=== PATIENT | male | born 1955 | race Caucasian/White ===

== ENCOUNTER 2023-08-03 07:34 | Inpatient (IN) ==
--- NOTE | 2023-06-25 11:45 | PAT Medication Instructions ---
Medication Instructions Date of Service June 25, 2023 Home Medications metformin 500 mg tablet 1,000 mg PO QPM MEDICATION INSTRUCTIONS: Take evening before surgery metformin 500 mg tablet 1,000 mg PO QPM Other Notes REMEMBER: NOTHING TO EAT OR DRINK AFTER MIDNIGHT If you have any questions please call us at [phone] or [phone] or [phone] or [phone]
--- NOTE | 2023-07-08 11:01 | Anesthesiology Consultation ---
Date of Service July 08, 2023 Assessment & Plan (1) Encounter for pre-operative examination: Plan - check BSG am DOS. - awaiting surgeon ordered medical clearance, Dr.Minhaj Carballo at [facility] in [place], [place] on 07/13/23. Chart Review Chart Review: Pending: Refer to Additional Notes / Consult section and Patient seen in Pre Admission Testing Teaching & Discussion Pre-Anesthesia Teaching/Discussion Notes: Instructed NPO after midnight before surgery, except medications with 15 cc of water. Medication instructions provided according to the PAT guidelines. History Surgery Operation Date: 08/03/23 07:45 Proposed Procedures p L3-S1 Decompression and Fusion with Spinal Cord Monitoring - Ty Melchor, Height/Weight Height: 5 ft 11 in Weight: 117.3 kg Allergies Allergy/AdvReac Type Severity Reaction Status Date / Time adhesive AdvReac Intermediate SKIN TEARS Verified 06/24/23 15:16 Medications Home Medications Medication Instructions Recorded Confirmed Last Taken metformin 500 mg tablet 1,000 mg PO QPM 06/24/23 06/24/23 Unknown Past Medical History Medical History Diabetes NIDDM History of anesthesia reaction reports waking up in middle of 2 surgeries History of COVID-19 (~2022) lab test, resolved Patient denies h/o stroke, seizures, heart attack, heart failure, HTN, blood clots/DVTs or blood transfusions. Exercise / Class Metabolic Activity III < 4 Walking/Shop/Light housework (denies chest discomfort or shortness of breath with usual activities) Past Surgical History Surgical History (Updated 07/08/23 @ 11:10 by Babs Person PA-C) History of back surgery lumbar disectomy History of bilateral knee replacement History of colonoscopy History of esophagogastroduodenoscopy (EGD) Hx of hand surgery x 2, bilat Hx of knee surgery x 3 arthroscopic Hx of neck surgery x 3 Hx of shoulder surgery rt Hx of tonsillectomy Hx of vasectomy Past Anesthesia History No Family Hx of Anesthesia Complications and Other (awareness during previous surgeries) History of PONV No Hx of PONV and No Hx of Motion Sickness Social History Smoking Status: Never smoker Do You Dip or Chew Tobacco: Yes (1/2 can/day (advised)) Hx Alcohol Use: Yes Alcohol type: beer alcohol intake frequency: 3 or more drinks per day (4-5 drinks daily; denies h/o seizures, withdrawal or DTs) Hx Substance Use: No substance use type: does not use Review of Systems Patient denies chest pain, shortness of breath, dyspnea on exertion, snoring, witnessed apneas, reflux, fever, chills, cough, wheezing, or palpitations. Physical Exam Vital Signs Vitals BP 127/79 P 56 TEMP 97.6 SP02 95% on RA RESP 18 Physical Patient resting comfortably in chair in no acute distress, alert and oriented, responding appropriately throughout visit Moderately limited cervical extension range of motion without pain TMD 3.5 finger breadths Mallampati Score 2 Dentition: one broken tooth and partial plate, denies loose teeth, caps/crowns, implants or bridges Lungs: normal respiratory effort. Good air movement, clear throughout to auscultation, no adventitious breath sounds Cardiac: regular rate and rhythm, no murmurs noted Carotid arteries: negative bruit bilat Lab Results Anesthesia Preop Results Results Anesthesia Widget: WBC 5.56 K/ul (4.8-10.8) 07/08/23 Hgb 16.9 g/dl (14.0-18.0) 07/08/23 Hct 47.3 % (42.0-52.0) 07/08/23 Plt 250 K/uL (130-400) 07/08/23 Na 137 mmol/L (136-145) 07/08/23 K 4.1 mmol/L (3.5-5.1) 07/08/23 Cl 104 mmol/L (98-107) 07/08/23 CO2 27 mmol/L (21-32) 07/08/23 BUN 16 mg/dl (6-23) 07/08/23 Creat 0.87 mg/dl (0.6-1.4) 07/08/23 Glucose Level 134 mg/dl (70-99(Fasting)) H 07/08/23 PT 11.1 Seconds (9.0-12.0) 07/08/23 PTT 30 Seconds (21-31) 07/08/23 INR 1.0 (0.9-1.1) 07/08/23 HA1c 6.9 % (4.5-5.6) H 07/08/23 Urine Color Yellow 07/08/23 Urine Appearance Clear (Clear) 07/08/23 Urine pH 5.0 (4.5-7.5) 07/08/23 Urine Specific [place] 1.020 (1.000-1.030) 07/08/23 Urine Protein Negative (Negative) 07/08/23 Urine Glucose (UA) Negative (Negative) 07/08/23 Urine Ketones Negative (Negative) 07/08/23 Urine Blood Negative (Negative) 07/08/23 Urine Nitrite Negative (Negative) 07/08/23 Urine Bilirubin Negative (Negative) 07/08/23 Urine Urobilinogen Negative (Negative) 07/08/23 Urine Leukocyte Esterase Negative (Negative) 07/08/23 Blood Type O Positive 07/08/23 Antibody Screen NEGATIVE 07/08/23 Testing Electrocardiogram Date: 07/08/23 Sinus bradycardia, rate 51 bpm Chest X-Ray Date: 07/08/23 Mild cardiomegaly with no active disease in the chest.
[2023-08-03] MEDS: LR 60ML/HR IV SCH (08:24)
[2023-08-03] MEDS: CeleBREX 200 MG CAP PO SCH (08:24)
[2023-08-03] MEDS: GABAPENTIN 300 MG CAP PO SCH (08:24)
[2023-08-03] MEDS: LR 15ML/HR IV SCH (08:24)
[2023-08-03] MEDS: ACETAMINOPHEN 500 MG TAB PO SCH (08:24)
[2023-08-03] MEDS ORDERED: PROMETHAZINE HCL 6.25 MG in SODIUM CHLORIDE 0.9% 50 ML IV PRN (09:06)
[2023-08-03] MEDS ORDERED: ePHEDrine sulfate 50 MG/ML AMP IV PRN (09:06)
[2023-08-03] MEDS ORDERED: HYDROmorphone INJ 2 MG/ML SYR/VIAL IV PRN (09:06)
[2023-08-03] MEDS ORDERED: ONDANSETRON INJ 2 MG/ML 2 ML VIAL IV PRN ×2 (09:06→15:10)
[2023-08-03] MEDS ORDERED: ATROPINE SULFATE 0.1 MG/ML 10ML SYR IV PRN (09:06)
[2023-08-03] MEDS ORDERED: ROCURONIUM BROMIDE 10 MG/ML 5 ML VIAL IV ONE ×2 (09:23→11:14)
[2023-08-03] MEDS ORDERED: LARYING-O-JET KIT (LTA) ONE (09:23)
[2023-08-03] MEDS ORDERED: PROPOFOL IV EMULSION 10 MG/ML 20 ML VIAL IV ONE (09:23)
[2023-08-03] MEDS ORDERED: ONDANSETRON INJ 2 MG/ML 2 ML VIAL ONE (09:23)
[2023-08-03] MEDS ORDERED: DEXAMETHASONE SOD INJ 4 MG/ML VIAL ONE (09:23)
[2023-08-03] MEDS ORDERED: MIDAZOLAM HCL 1 MG/ML 2ML VIAL ONE (09:23)
[2023-08-03] MEDS ORDERED: LIDOCAINE 2% 2 ML VIAL/AMP(20MG/ML) INFIL ONE (09:23)
[2023-08-03] MEDS ORDERED: fentaNYL citrate PF 100 MCG/2 ML VIAL ONE (09:24)
--- NOTE | 2023-08-03 09:59 | History & Physical Bridge Note ---
Date of Service August 03, 2023 History & Physical Bridge Note I have examined the patient, reviewed the History & Physical and in the interval since the performance of the History & Physical I have noted the following changes of clinical significance: no changes noted
--- NOTE | 2023-08-03 10:00 | History & Physical Report ---
Date of Service August 03, 2023 Assessment & Plan (1) Neurogenic claudication due to lumbar spinal stenosis: Plan: L3-S1 decompression and fusion History of Present Illness Chief Complaint: Back and bilateral leg pain Primary Care Provider: NO PCP This is a 68-year-old male presents with chronic persistent back and bilateral leg pain after the course of nonoperative care is here for surgical invention. Allergies Allergy/AdvReac Type Severity Reaction Status Date / Time adhesive AdvReac Intermediate SKIN TEARS Verified 08/03/23 08:08 Home Medications Medication Instructions Recorded Confirmed Type metformin 500 mg tablet 1,000 mg PO QPM 06/24/23 08/03/23 History Past Med/Surg History Medical History (Updated 08/03/23 @ 10:00 by Ty Melchor DO) History of anesthesia reaction reports waking up in middle of 2 surgeries History of COVID-19 (~2022) lab test, resolved Diabetes NIDDM Surgical History History of esophagogastroduodenoscopy (EGD) History of colonoscopy Hx of hand surgery x 2, bilat Hx of tonsillectomy Hx of vasectomy History of bilateral knee replacement Hx of knee surgery x 3 arthroscopic History of back surgery lumbar disectomy Hx of shoulder surgery rt Hx of neck surgery x 3 Social History Smoking Status: Never smoker Tobacco Type: Smokeless Tobacco (Dip or Chew) Second Hand Exposure: No; Do You Dip or Chew Tobacco: Yes (1/2 can/day (advised)); Tobacco Cessation Education Requested by Patient: No Hx Alcohol Use: Yes Alcohol type: beer Hx Substance Use: No Preferred Language: Northern Irish Communication Ability: Effective Child Care Supervisor Required: No Beliefs That Will Affect Care: None Current Living Situation: Spouse Other Information That Helps Us Care for You: No Feels Safe at Home: Yes Safety Concerns: Feels Safe At This Time Assistive Devices: Denture - Lower and Glasses Physical Exam Physical Exam: Patient is alert and oriented Heart regular rhythm Lungs clear Results & Data Results & Data Vital Signs (Past 12 Hours) Vital Signs Temp Pulse Resp BP Pulse Ox O2 Del Method 08/03/23 08:14 36.4 C L 58 L 18 155/90 H 96 Room Air
[2023-08-03] MEDS ORDERED: KETAMINE HCL INJ 50 MG/ML 10 ML VIAL ONE (10:15)
[2023-08-03] MEDS ORDERED: DexMEDEtomidine HCL IV 100 MCG/ML VIAL IV ONE (10:15)
[2023-08-03] MEDS: ceFAZolin 2000MG 2,000 MG/15 ML SYR IV SCH ×2 (10:26→19:45)
[2023-08-03] MEDS ORDERED: ePHEDrine sulfate 50 MG/ML AMP ONE (11:00)
[2023-08-03] MEDS ORDERED: PHENYLEPHRINE 100MCG/ML 10ML SYR IV ONE (11:00)
[2023-08-03] MEDS ORDERED: HYDROmorphone INJ 2 MG/ML SYR/VIAL ONE (11:06)
[2023-08-03] MEDS: ceFAZolin 330 MG/ML 1 GM VIAL ONE (11:07)
[2023-08-03] MEDS: BUPIVACAINE/EPINEPHRINE 0.5% MPF 1:200,000 30 ML VIAL ONE (11:07)
[2023-08-03] MEDS: FLOSEAL HEMOSTATIC MATRIX 10ML TOP ONE ×2 (12:31→13:24)
[2023-08-03] MEDS ORDERED: ALBUMIN HUMAN 5% 12.5 GM/250 ML VIAL IV ONE (12:54)
[2023-08-03] MEDS ORDERED: SUGAMMADEX SODIUM 200 MG/2 ML VIAL IV ONE (13:35)
--- NOTE | 2023-08-03 13:37 | Operative Report ---
Post Operative Report Pre & Post Diagnosis Operation Date: 08/03/23 09:35 Pre-Op Diagnosis: Lumbar spinal stenosis with neurogenic claudication Lumbar spondylosis Obesity Post-Op Diagnosis: Same I identified the patient and participated in the time-out.: Yes Procedure Operation Date: 08/03/23 09:35 Actual Procedures #1 lumbar decompression bilateral medial facetectomies and foraminotomies L2-L3, L3-L4, L4-5 and L5-S1. #2 posterior spinal fusion L3-S1. #3 placed posterior segmental instrumentation L3-S1. #4 interbody fusion L3-L4 L4-L5 #5 placement Spira 13 x 26 mm at L3-L4 and 14 x 26 mm at L4-L5. #6 placement of locally harvested morselized autograft posterior gutters. #7 placement infuse collagen sponge combined with Koros bone graft in the posterior gutters and Morpheus bone graft in the interbody space. Surgeon Ty Melchor, DO Reinforcing Rod Layer Jaky Slater Estimated Blood Loss 1,250 Findings See Below The patient is 5 foot 11 weighing over 117 kg with a BMI in excess of 36. This combined with an EBL of greater than 1200 cc created significant technical difficulty. This at least 50% increased operative time. Specimens None Indications This is a 68-year-old male presents above-mentioned diagnosis after failed course of nonoperative care is here for surgical intervention. Description of Procedure Patient was met with identified informed consent obtained. Patient was then taken to the operative suite underwent patient placed in a prone position on the [place]ountain table top [place] frame. All bony promises well-padded eyes inspected to ensure no external pressure placed upon the. This point the lumbar spine was prepped and draped in normal sterile fashion. Sharp dissection with the assistance of Bovie cautery from down to and exposing the lamina transverse processes of L3 L4-5 and sacral ala bilaterally. From caudal to cephalad fashion complete laminectomy of L5 L4 L3 and partial laminectomy of L2 was performed including bilateral medial facetectomies and foraminotomies L2-L3, L3- L4, L4-5 and L5-S1 addressing severe spinal stenosis. Pedicle screws then placed in L3-L4-L5 and S1 levels bilaterally with assistance of fluoroscopy in the process mitchel placed. By way of transforaminal approach on the right complete discectomy of L4-L5 was performed endplates guided to subcortical mean bone and a 14 x 26 mm Spira cage filled with Morpheus bone graft tapped in position. Then proceeded to L3-L4 and again by way of a transforaminal approach on the right a complete discectomy performed endplates guided to subcortical bleeding bone and a 13 x 26 mm Spira cage filled with Morpheus bone graft tapped in position. I did not pursue a interbody construct at L5-S1 secondary to to blood loss and calcification of the posterior annulus at this level. The rods then locked in final position bilaterally. The transverse processes of L3-L4-L5 and sacral ala burred to subcortically bone. Infuse collagen sponge combined with Koros and local autograft placed in posterior gutters. 15 round MIRELA drain inserted. The incision was then closed with 1 Vicryl in the fascia 2-0 Vicryl subcutaneously and 4 Monocryl for final skin closure. Steri-Strips sterile dressing placed. Patient awakened taken to PACU in stable condition. Please note spinal cord monitoring was utilized at the procedure no changes noted. Lastly Jaky Slater was present at the entire surgery and all the patient positioning complex portions of the surgery and final skin closure. I attest to the content of the Intraoperative Record and any orders documented therein. Any exceptions are noted below.
[2023-08-03] MEDS: fentaNYL citrate PF 100 MCG/2 ML VIAL IV PRN (14:10)
[2023-08-03 14:21] LABS: Basophils # (auto) 0.03 K/uL (0.00-0.20); Basophils % (auto) 0.4 %; Eosinophils # (auto) 0.02 K/uL (0.00-0.50); Eosinophils % (auto) 0.3 %; Hematocrit (blood only) 40.4 % (42.0-52.0); Hemoglobin 13.8 g/dl (14.0-18.0); Immature Granulocytes # (auto) 0.06 K/uL (0.01-0.20); Immature Granulocytes % (auto) 0.8 %; Lymphocytes # (auto) 0.83 K/uL (1.20-3.40); Lymphocytes % (auto) 11.8 %; Mean Corpuscular Hemoglobin 31.9 pg (25.0-34.0); Mean Corpuscular Hgb Conc 34.2 g/dL (32.0-36.0); Mean Corpuscular Volume 93.3 fL (80.0-100.0); Mean Platelet Volume 8.9 fL (9.4-12.4); Monocytes # (auto) 0.12 K/uL (0.11-0.59); Monocytes % (auto) 1.7 %; Platelet Count 184 K/uL (130-400); RDW Coefficient of Variation 12.1 % (11.5-14.5); RDW Standard Deviation 41.9 fL (36.4-46.3); Red Blood Count 4.33 M/uL (4.70-6.10); White Blood Count 7.06 K/ul (4.8-10.8)
--- NOTE | 2023-08-03 14:42 | Anesthesiology Progress Note ---
Date of Service August 03, 2023 Anesthesia Post Procedure Vital Signs Vital Signs: Temp Pulse Pulse Resp BP Pulse Ox O2 Del Method 08/03/23 14:35 68 10 L 130/65 94 Nasal Cannula 08/03/23 14:25 64 12 116/56 L 93 Nasal Cannula 08/03/23 14:15 65 11 L 125/59 L 92 Nasal Cannula 08/03/23 14:05 64 12 130/62 97 Room Air 08/03/23 13:56 36.1 C L 63 19 131/57 L 98 Room Air 08/03/23 08:14 36.4 C L 58 L 18 155/90 H 96 Room Air O2 Flow Rate 08/03/23 14:35 08/03/23 14:25 08/03/23 14:15 2 08/03/23 14:05 08/03/23 13:56 08/03/23 08:14 Pain Intensity Back: Pain Intensity: 3 Transfer of Care Handoff Completed per policy Notes Mental Status: alert / awake / arousable and participated in evaluation Patient Amnestic to Procedure: Yes Nausea / Vomiting: adequately controlled Pain: adequately controlled Airway Patency, RR, SpO2: stable & adequate BP & HR: stable & adequate Hydration State: stable & adequate Anesthetic Complications: no major complications apparent and Pt Satisfied with anesthetic care
[2023-08-03] MEDS ORDERED: NALOXONE HCL 0.4 MG/1 ML VIAL/CARP IV PRN (15:10)
[2023-08-03] MEDS ORDERED: SOD PHOSPHATE/SOD BIPHOSPHATE ENEMA 132 ML BTL PR PRN (15:10)
[2023-08-03] MEDS ORDERED: LORazepam 0.5 MG in SYRINGE 0.25 ML IV PRN (15:10)
[2023-08-03] MEDS ORDERED: DO NOT ADMINISTER FLU VACCINE PRN (15:10)
[2023-08-03] MEDS ORDERED: ALUMINUM/MAGNESIUM SUSP 30 ML UDC PO PRN (15:10)
[2023-08-03] MEDS ORDERED: MAGNESIUM HYDROXIDE SUSP 30 ML UDC PO PRN (15:10)
[2023-08-03] MEDS ORDERED: HYDROmorphone INJ 0.5 MG/0.5 ML SYR IV PRN (15:10)
[2023-08-03] MEDS ORDERED: ONDANSETRON 4 MG OD TAB PO PRN (15:10)
[2023-08-03] MEDS ORDERED: ACETAMINOPHEN 1,000 MG/100 ML VIAL IV PRN (15:10)
[2023-08-03] MEDS ORDERED: hydrOXYzine HCl 25 MG TAB PO PRN (15:10)
[2023-08-03] MEDS ORDERED: diphenhydrAMINE Capsule 25 MG CAP PO PRN (15:10)
[2023-08-03] MEDS ORDERED: PROMETHAZINE HCL 12.5 MG in SODIUM CHLORIDE 0.9% 50 ML IV PRN (15:10)
[2023-08-03] MEDS ORDERED: bisacodyL 10 MG SUPP PR PRN (15:10)
[2023-08-03] MEDS ORDERED: PHARMACY GLYCEMIC MGMT CONSULT PRN (15:10)
[2023-08-03] MEDS ORDERED: FAMOTIDINE 20 MG TAB PO PRN (15:10)
[2023-08-03] MEDS ORDERED: DO NOT ADMINISTER PNEUMOCOCCAL VACCINE PRN (15:10)
[2023-08-03] MEDS ORDERED: traMADol HCL 50 MG TABLET PO PRN (15:10)
[2023-08-03] MEDS ORDERED: ACETAMINOPHEN 500 MG TAB PO PRN (15:10)
[2023-08-03] MEDS ORDERED: LORazepam 0.5 MG TAB PO PRN (15:10)
[2023-08-03] MEDS ORDERED: METOCLOPRAMIDE HCL INJ 5 MG/ML 2 ML VIAL IV PRN (15:10)
--- NOTE | 2023-08-03 15:29 | Consultation ---
Date of Consultation August 03, 2023 Assessment & Plan (1) Status post lumbar surgery: (2) Neurogenic claudication due to lumbar spinal stenosis: Post op day# 0 S/P L3-S1 decompression and fusion by Dr Melchor [id number] Pain management per ortho Wound management per ortho PT/OT as appropriate DVT prophylaxis per ortho Incentive spirometry Monitor H&H for acute blood loss anemia; Reviewed Pre-op Hgb: 16.9 and today's post-op Hgb: 13.8 (3) Diabetes mellitus, type II: A1c: 6.9 on 07/08/23 Hold home metformin Diabetic diet encouraged Novolog sliding scale per protocol (4) Tobacco use: Chews 1 can snuff daily Denies nicotine patch/gum (5) Alcohol use: Drinks 3-4 beers daily Monitor for withdrawal Start daily folic acid, thiamine and multivitamin (6) Obesity: BMI: 36 Lifestyle modifications to be recommended DVT Prophylaxis SCDs Follows with Dr Haris Moise at [facility] for routine care Pt was seen and care coordinated with Dr Hightower. See addendum Thank you for this consultation. We will follow the patient with you during their hospital stay. You can reach a member of the [facility] 10/11 via [facility] Supervising Physician Co-Signing Physician Notes Pt seen and examined by me, care coordinated w/ Denis Abel PA-C, pls refer to her note above for further detail. Pt is 68 yo M with DM II, DDD, chewing tobacco use, obesity, seen in medical consultation s/p L3-S1 decompression and fusion today by Dr Melchor. History obtained from patient and outpatient scanned PCP note review. Post op patient reports pain controlled. Denies fever/chills, diaphoresis, N/V/D, GARNER, dizziness, chest pain, shortness of breath. He is sitting up in bed in NAD, on suppl. o2 he is alert oriented and answers appropriately. Pt's present at the bedside. Lungs are clear but diminished at bases. Encouraged incentive spirometry. heart sounds regular, no murmur. Abdomen soft nontender, + bowel sounds. Has Osborne catheter in place, draining yellow urine. SCDs applied, pt moves extremities. MIRELA w/ serosang. fluid. Monitor hemodynamic status and H&H. Acute blood loss anemia noted H&H post-op 13.8. Hold metformin while inpt, will cover with novolog jose david. MD Katja History of Present Illness Requesting Physician: Dr Melchor Reason for Consultation: Post op medical management Attending Physician: Ty Melchor, History of Present Illness Patient is 68 year old male with PMH DM II, DDD, chewing tobacco use, obesity, seen in medical consultation s/p L3-S1 decompression and fusion today by Dr Melchor. History obtained from patient and outpatient scanned PCP note review. Post op patient reports pain controlled. Has Osborne catheter in place. Denies fever/chills, diaphoresis, N/V/D, GARNER, dizziness, CP, SOB, cough, sore throat, rhinorrhea, abdominal pain, extremity weakness, extremity edema, rashes, urinary symptoms. Allergies Allergy/AdvReac Type Severity Reaction Status Date / Time adhesive AdvReac Intermediate SKIN TEARS Verified 08/03/23 08:08 Home Medications Medication Instructions Recorded Confirmed Type metformin 500 mg tablet 1,000 mg PO QPM 06/24/23 08/03/23 History Patient History Medical History (Updated 08/03/23 @ 16:00 by Amita Abel PA-C) Obesity Tobacco use Diabetes mellitus, type II History of anesthesia reaction reports waking up in middle of 2 surgeries History of COVID-19 (~2022) lab test, resolved Diabetes NIDDM Surgical History Status post lumbar surgery 08/03/23: L3-S1 decompression, fusion. Dr Melchor. [facility] History of esophagogastroduodenoscopy (EGD) History of colonoscopy Hx of hand surgery x 2, bilat Hx of tonsillectomy Hx of vasectomy History of bilateral knee replacement Hx of knee surgery x 3 arthroscopic History of back surgery lumbar disectomy Hx of shoulder surgery rt Hx of neck surgery x 3 Family History Other Cancer Diabetes Dyslipidemia Hypertension Stroke Social History Smoking Status: Never smoker Tobacco Type: Smokeless Tobacco (Dip or Chew) Second Hand Exposure: No; Do You Dip or Chew Tobacco: Yes (1/2 can/day (advised)); Tobacco Cessation Education Requested by Patient: No Hx Alcohol Use: Yes Alcohol type: beer Hx Substance Use: No Preferred Language: Khmer Communication Ability: Effective Appian Developer Required: No Beliefs That Will Affect Care: None Current Living Situation: Spouse Other Information That Helps Us Care for You: No Feels Safe at Home: Yes Safety Concerns: Feels Safe At This Time Assistive Devices: Denture - Lower and Glasses Review of Systems Review of Systems: All systems reviewed & are unremarkable except as noted in HPI & below Physical Exam Physical Exam: General: no distress, WDWN Head: normocephalic, atraumatic Eyes: conjunctiva non-injected, anicteric ENT: normal inspection external ears, nose, mucous membranes moist Neck: supple, trachea midline, non-tender Lungs: clear but diminished at bases, no respiratory distress, no wheezing/rhonchi/rales CV: RRR, no murmur, no pretibial edema Abd: normal BS, soft, non-tender Back: +MIRELA drain with serosanguineous drainage Ext: +SCDs in place, no calf tenderness, pedal pushes and pulls intact Neuro: A&O x 3, no focal deficits noted, normal affect Skin: warm, dry Results & Data Vital Signs (Past 12 Hours) Vital Signs Temp Pulse Pulse Resp BP Pulse Ox O2 Del Method 08/03/23 14:35 36.6 C 68 10 L 130/65 94 Nasal Cannula 08/03/23 14:25 64 12 116/56 L 93 Nasal Cannula 08/03/23 14:15 65 11 L 125/59 L 92 Nasal Cannula 08/03/23 14:05 64 12 130/62 97 Room Air 08/03/23 13:56 36.1 C L 63 19 131/57 L 98 Room Air 08/03/23 08:14 36.4 C L 58 L 18 155/90 H 96 Room Air O2 Flow Rate 08/03/23 14:35 08/03/23 14:25 08/03/23 14:15 2 08/03/23 14:05 08/03/23 13:56 08/03/23 08:14 Laboratory Results Short CBC 08/03/23 Range/Units 14:03 WBC 7.06 (4.8-10.8) K/ul Hgb 13.8 L (14.0-18.0) g/dl Hct 40.4 L (42.0-52.0) % Plt Count 184 (130-400) K/uL
[2023-08-03] MEDS ORDERED: CARBOHYDRATES FOR HYPOGLYCEMIA PO PRN (15:30)
[2023-08-03] MEDS ORDERED: GLUCAGON FOR INJ 1 MG VIAL SQ PRN (15:30)
[2023-08-03] MEDS ORDERED: DEXTROSE 50% 50 ML SYRINGE IV PRN (15:30)
[2023-08-03] MEDS ORDERED: GLUCOSE 40% GEL 15 GM TUBE PO PRN (15:30)
[2023-08-03] MEDS ORDERED: GLUCOSE 10 TAB/TUBE PO PRN (15:30)
--- NOTE | 2023-08-03 15:30 | Fluoroscopy Report ---
FL lumbar spine 2-3V CLINICAL HISTORY: L3-S1 DECOMPRESSION AND FUSION COMPARISON STUDY: None. FLUOROSCOPY TIME: 30 seconds. Ka, r: 29.27 mGy FLUOROSCOPIC IMAGES: FINDINGS: Fluoroscopy was provided during L3-L4 and L4-L5 discectomies with interbody spacer placemen t. Posterior decompression is noted. There are bilateral pedicle screws at the L3, L4, L5 and S1 leve ls with interconnecting rods. Hardware is intact. IMPRESSION: Fluoroscopy provided during L3-S1 decompression and fusion. ACT 112: Negative or not required by law. Electronically signed by: Miah Gamez M.D. 08/03/2023 3:29 PM
[2023-08-03] MEDS ORDERED: LORazepam 1 MG TAB PO PRN (16:15)
[2023-08-03] MEDS: LACTATED RINGER'S 1,000 ML IV SCH (16:51)
[2023-08-03] MEDS: INSULIN ASPART PER UNIT CHARGE SC SCH (17:54)
[2023-08-03] MEDS: DOCUSATE SODIUM/SENNA 50/8.6MG TAB PO SCH (20:54)
[2023-08-03] MEDS: oxyCODONE HCL IR 5 MG TAB (IMMEDIATE RELEASE) PO PRN (20:54)
[2023-08-03] MEDS: LANTUS PER UNIT CHARGE SC ONE (20:55)
[2023-08-03] MEDS ORDERED: metFORMIN HCL 500 MG TAB PO SCH (21:00)
[2023-08-04] MEDS: INSULIN ASPART PER UNIT CHARGE SC ONE (03:52)
[2023-08-04] MEDS: POLYETHYLENE (MIRALAX) 17 GM PACK PO SCH (06:29)
[2023-08-04 07:15] LABS: Basophils # (auto) 0.03 K/uL (0.00-0.20); Basophils % (auto) 0.3 %; Eosinophils # (auto) 0.01 K/uL (0.00-0.50); Eosinophils % (auto) 0.1 %; Hematocrit (blood only) 33.7 % (42.0-52.0); Hemoglobin 11.9 g/dl (14.0-18.0); Immature Granulocytes # (auto) 0.04 K/uL (0.01-0.20); Immature Granulocytes % (auto) 0.4 %; Lymphocytes % (auto) 14.7 %; Mean Corpuscular Hemoglobin 32.7 pg (25.0-34.0); Mean Corpuscular Hgb Conc 35.3 g/dL (32.0-36.0); Mean Corpuscular Volume 92.6 fL (80.0-100.0); Mean Platelet Volume 9.3 fL (9.4-12.4); Monocytes # (auto) 0.81 K/uL (0.11-0.59); Monocytes % (auto) 8.5 %; Neutrophils # (auto) 7.24 K/uL (1.40-6.50); Platelet Count 201 K/uL (130-400); RDW Standard Deviation 41.2 fL (36.4-46.3); Red Blood Count 3.64 M/uL (4.70-6.10); White Blood Count 9.53 K/ul (4.8-10.8)
[2023-08-04 07:41] LABS: BUN Creatinine Ratio 16.7 (10-20); Calcium 8.8 mg/dl (8.6-10.3); Creatinine Clr Calc Pharmacy 103.8 ml/min; Est GFR (African American) 102.1 ml/min; Est GFR (Non-African American) 88.1 ml/min; Potassium 3.8 mmol/L (3.5-5.1)
[2023-08-04] MEDS: LANTUS PER UNIT CHARGE SC SCH (08:54)
[2023-08-04] MEDS: MULTIVITAMIN TAB PO SCH (09:02)
[2023-08-04] MEDS: FOLIC ACID 1 MG TAB PO SCH (09:03)
[2023-08-04] MEDS: THIAMINE HCL 100 MG TAB PO SCH (09:03)
[2023-08-04] MEDS: dexAMETHasone 6 MG in SYRINGE 0 ML IV SCH (09:04)
--- NOTE | 2023-08-04 11:46 | Orthopedic Progress Note ---
Date of Service August 04, 2023 Assessment & Plan (1) Neurogenic claudication due to lumbar spinal stenosis: Plan: We will initiate physical therapy monitor his MIRELA operatively discharge over the next few days Admission and Anticipated Discharge Date Admission Date: August 03, 2023 Subjective Back pain controlled leg pain improved Physical Exam Physical Exam: Patient is sitting up at the bedside. Is concerned to testing. Was comfortable. Results & Data Vital Signs (Past 12 Hours) Vital Signs Temp Pulse Resp BP Pulse Ox Pulse Ox O2 Del Method 08/04/23 08:00 96 08/04/23 07:00 36.6 C 59 L 14 107/60 94 Room Air 08/04/23 04:37 36.4 C L 60 16 117/67 96 Room Air O2 Del Method 08/04/23 08:00 Room Air 08/04/23 07:00 08/04/23 04:37 Queries Orthopedic Spine Acute Posthemorrhagic Anemia: Yes Obesity: Yes
--- NOTE | 2023-08-04 12:49 | Pharmacy Report ---
Pharmacy Glycemic Short Note 2 - Date of Service August 04, 2023 - Glycemic Short BSG Results (Last 24 hours): 08/03/23 08/03/23 08/03/23 13:57 16:53 20:43 Glucose POC Glucose 186 H 266 H 199 H 08/04/23 08/04/23 08/04/23 03:48 06:30 07:42 Glucose 152 H POC Glucose 168 H 159 H 08/04/23 11:27 Glucose POC Glucose 177 H OUTPATIENT ANTIDIABETIC REGIMEN: * A1c 6.9% 07/08/23 * Metformin 1000 mg QD ASSESSMENT: * Patient POD #1, dexamethasone 6mg IV daily ordered * Patient received 10 units of lantus with fasting 159 mg/dL this morning- will start 10 units BID * Novolog initiated weight based stress of 2, will tighten carb ratio slightly PLAN FOR INPATIENT GLYCEMIC CONTROL: * Hold outpatient oral diabetes medications * Basal insulin * Lantus 10 units SQ BID * Bolus insulin * NovoLog per scale ACHS or Q6hrs while NPO * Goal Range: Low 110 mg/dL - High 140 mg/dL * Correction Factor: 20 mg/dL/unit * Nutritional / Prandial insulin per carb ratio of 1 unit per 6 grams CHO consumed
--- NOTE | 2023-08-04 17:47 | Hospitalist Progress Note ---
Date of Service August 04, 2023 Assessment & Plan (1) Status post lumbar surgery: (2) Neurogenic claudication due to lumbar spinal stenosis: Plan: S/P L3-S1 decompression and fusion by Dr Melchor on 08/03/2023 [id number] Pain management per ortho Wound management per ortho PT/OT as appropriate DVT prophylaxis per ortho Incentive spirometry Monitor H&H for acute blood loss anemia; Reviewed Pre-op Hgb: 16.9 and today's post-op Hgb: 13.8 Hemoglobin remains stable at 11.9, electrolytes and kidney functions are unremarkable Remains medically stable and will recheck blood counts again tomorrow (3) Diabetes mellitus, type II: Plan: A1c: 6.9 on 07/08/23 Hold home metformin Diabetic diet encouraged Novolog sliding scale per protocol Blood sugar seems to be stable on the higher side at 266 (4) Tobacco use: Plan: Chews 1 can snuff daily Denies nicotine patch/gum Strongly advised to quit smoking (5) Alcohol use: Plan: Drinks 3-4 beers daily Monitor for withdrawal Start daily folic acid, thiamine and multivitamin No signs and or symptoms of withdrawal (6) Obesity: Plan: BMI: 36 Lifestyle modifications to be recommended DVT Prophylaxis SCDs Follows with Dr Haris Moise at [facility] for routine care Remains medically stable Admission and Anticipated Discharge Date Admission Date: August 03, 2023 Subjective 08/04/2023 The patient was seen and examined in medical floor He has been feeling much better following surgery with minimal pain at the lumbar spinal area without radiation Denies any chest pain, shortness of breath or palpitation Awaiting physical therapy Review of Systems Review of Systems: All systems reviewed and are unremarkable except as noted below Physical Exam Physical Exam: Sitting at the edge of the bed without any acute distress Constitutional: well developed, well nourished, + ill appearing and + obese Eyes: PERRL, conjunctivae normal, anicteric sclerae ENMT: external ear and nose normal, oropharynx normal Neck: trachea midline, no thyromegaly Respiratory: no respiratory distress Auscultation: lungs clear to auscultation bilaterally Cardiovascular: Rate/Rhythm: regular rate and regular rhythm; not tachycardic Heart Sounds: normal S1 and normal S2; no murmur Gastrointestinal (Abdomen): Inspection/Auscultation: normal bowel sounds; abdomen not distended Percussion/Palpation: abdomen soft; abdomen nontender Musculoskeletal: No acute arthritis involving any of the joint Neurologic: normal touch/pain/proprioception and moves all extremities; no focal motor deficits Psychiatric: A+Ox3, euthymic affect Lymphatic: no cervical or axillary lymphadenopathy Results & Data Results & Data Vital Signs (Past 12 Hours) Vital Signs Temp Pulse Resp BP Pulse Ox Pulse Ox O2 Del Method 08/04/23 15:51 36.6 C 64 16 136/70 95 Room Air 08/04/23 08:00 96 08/04/23 07:00 36.6 C 59 L 14 107/60 94 Room Air O2 Del Method 08/04/23 15:51 08/04/23 08:00 Room Air 08/04/23 07:00 Laboratory Results Short CBC 08/04/23 Range/Units 06:30 WBC 9.53 (4.8-10.8) K/ul Hgb 11.9 L (14.0-18.0) g/dl Hct 33.7 L (42.0-52.0) % Plt Count 201 (130-400) K/uL BMP 08/04/23 06:30 Sodium 134 L Potassium 3.8 Chloride 101 Carbon Dioxide 28 BUN 15 Creatinine 0.90 Glucose 152 H Calcium 8.8 Medications Administered Current Inpatient Medications Acetaminophen (Acetaminophen 500 Mg Tab) 1,000 mg PO Q8H PRN PRN Reason: MILD Pain Scale 1,2,3 & Pre PT Stop: 09/02/23 15:09 Al Hydrox/Mg Hydrox/Simethicone (Aluminum/Magnesium Susp 30 Ml Udc) 30 ml PO Q6H PRN PRN Reason: Dyspepsia Stop: 09/02/23 15:09 Bisacodyl (Bisacodyl 10 Mg Supp) 10 mg [place] DAILY PRN PRN Reason: Constipation Stop: 09/02/23 15:09 Dextrose (Dextrose 50% 50 Ml Syringe) 25 - 50 ml IV UD PRN; Protocol PRN Reason: Hypoglycemia Protocol Stop: 09/02/23 15:29 Diphenhydramine HCl (Diphenhydramine Capsule 25 Mg Cap) 25 mg PO Q6H PRN PRN Reason: Allergic Rhinitis/Insomnia Stop: 09/02/23 15:09 Famotidine (Famotidine 20 Mg Tab) 20 mg PO Q12H PRN PRN Reason: Dyspepsia Stop: 09/02/23 15:09 Folic Acid (Folic Acid 1 Mg Tab) 1 mg PO QAM [facility] Stop: 09/03/23 08:59 Last Admin: 08/04/23 09:03 Dose: 1 mg Glucagon (Glucagon For Inj 1 Mg Vial) 1 mg SQ UD PRN; Protocol PRN Reason: Hypoglycemia Protocol Stop: 09/02/23 15:29 Glucose (Glucose 10 Tab/Tube) 4 - 8 tab PO UD PRN; Protocol PRN Reason: Hypoglycemia Treatment Stop: 09/02/23 15:29 Glucose (Glucose 40% Gel 15 Gm Tube) 15 - 30 gm PO UD PRN; Protocol PRN Reason: Hypoglycemia Protocol Stop: 09/02/23 15:29 Hydromorphone HCl (Hydromorphone Inj 0.5 Mg/0.5 Ml Syr) 0.5 mg IV Q3H PRN PRN Reason: MODERATE Pain (Scale 4,5,6) & Pre PT Stop: 08/17/23 15:09 Hydromorphone HCl (Hydromorphone Inj 1 Mg/Ml Syringe) 1 mg IV Q3H PRN PRN Reason: SEVERE Pain (Scale 7,8,9,10) Stop: 08/17/23 15:09 Hydroxyzine HCl (Hydroxyzine Hcl 25 Mg Tab) 25 mg PO Q8H PRN PRN Reason: Anxiety Stop: 09/02/23 15:09 Promethazine HCl 12.5 mg/ (Sodium Chloride) 50.5 mls @ 202 mls/hr IV Q6H PRN PRN Reason: Nausea &/or Vomiting Stop: 09/02/23 15:09 Lorazepam 0.5 mg/ Syringe 0.5 mls @ 2 mls/min IV Q8H PRN; Protocol PRN Reason: Sedation/Anxiety Stop: 09/02/23 15:09 Dexamethasone 6 mg/ Syringe 1.5 mls @ 1 mls/min IV DAILY [facility] Stop: 08/06/23 09:02 Last Admin: 08/04/23 09:04 Dose: 1 mls/min Influenza Virus Vaccine Quadrival (Do Not Administer Flu Vaccine) 1 each N/A PRN PRN PRN Reason: Notification Stop: 09/02/23 15:09 Insulin Aspart (Insulin Aspart Per Unit Charge) 0 units SC ACHS [facility] Stop: 09/02/23 16:29 Last Admin: 08/04/23 17:20 Dose: 14 units Insulin Glargine (Lantus Per Unit Charge) 10 units SC BID [facility] Stop: 09/03/23 08:59 Last Admin: 08/04/23 08:54 Dose: 10 units Lorazepam (Lorazepam 0.5 Mg Tab) 0.5 mg PO Q8H PRN PRN Reason: Sedation/Anxiety Stop: 09/02/23 15:09 Lorazepam (Lorazepam 1 Mg Tab) 1 mg PO ONE PRN; Protocol PRN Reason: EtoH Withdrawal AWSS 6,7,8,9,10 Magnesium Hydroxide (Magnesium Hydroxide Susp 30 Ml Udc) 30 ml PO Q24H PRN PRN Reason: Constipation Stop: 09/02/23 15:09 Metoclopramide HCl (Metoclopramide Hcl Inj 5 Mg/Ml 2 Ml Vial) 10 mg IV Q6H PRN PRN Reason: Nausea &/or Vomiting Stop: 09/02/23 15:09 Miscellaneous (Carbohydrates For Hypoglycemia ) 15 - 30 gm PO UD PRN PRN Reason: Hypoglycemia Protocol Stop: 09/02/23 15:29 Miscellaneous Information (Pharmacy Glycemic Mgmt Consult) 1 each N/A UD PRN PRN Reason: Consult Stop: 09/02/23 15:09 Multivitamins (Multivitamin Tab) 1 tab PO QAM [facility] Stop: 09/03/23 08:59 Last Admin: 08/04/23 09:02 Dose: 1 tab Naloxone HCl (Naloxone Hcl 0.4 Mg/1 Ml Vial/Carp) 0.1 mg IV Q5M PRN PRN Reason: Oversedation/Resp depression Stop: 09/02/23 15:09 Ondansetron HCl (Ondansetron Inj 2 Mg/Ml 2 Ml Vial) 4 mg IV Q6H PRN PRN Reason: Nausea &/or Vomiting Stop: 09/02/23 15:09 Ondansetron HCl (Ondansetron 4 Mg Od Tab) 4 mg PO Q6H PRN PRN Reason: Nausea Stop: 09/02/23 15:09 Oxycodone HCl (Oxycodone Hcl Ir 5 Mg Tab (Immediate Release)) 5 - 10 mg PO Q4H PRN PRN Reason: Pain & Pre PT Stop: 08/17/23 15:09 Last Admin: 08/04/23 17:03 Dose: 10 mg Pneumococcal Polyvalent Vaccine (Do Not Administer Pneumococcal Vaccine) 1 each N/A PRN PRN PRN Reason: Notification Stop: 09/02/23 15:09 Polyethylene Glycol (Polyethylene (Miralax) 17 Gm Pack) 17 gm PO Q6 [facility] Stop: 09/03/23 05:59 Last Admin: 08/04/23 17:03 Dose: 17 gm Senna/Docusate Sodium (Docusate Sodium/Senna 50/8.6mg Tab) 2 tab PO HS [facility] Stop: 09/02/23 20:59 Last Admin: 08/03/23 20:54 Dose: 2 tab Sodium Biphosphate/Sodium Phosphate (Sod Phosphate/Sod Biphosphate Enema 132 Ml Btl) 132 ml [place] ONE PRN PRN Reason: Constipation Stop: 09/02/23 15:09 Thiamine HCl (Thiamine Hcl 100 Mg Tab) 100 mg PO QAM [facility] Stop: 09/03/23 08:59 Last Admin: 08/04/23 09:03 Dose: 100 mg Tramadol HCl (Tramadol Hcl 50 Mg Tablet) 50 - 100 mg PO Q4H PRN PRN Reason: Moderate-Severe pain & Pre PT Stop: 09/02/23 15:09
[2023-08-04] MEDS: HYDROmorphone INJ 1 MG/ML SYRINGE IV PRN (20:17)
[2023-08-05 06:29] LABS: Basophils # (auto) 0.04 K/uL (0.00-0.20); Basophils % (auto) 0.4 %; Eosinophils # (auto) 0.06 K/uL (0.00-0.50); Eosinophils % (auto) 0.6 %; Hematocrit (blood only) 32.4 % (42.0-52.0); Hemoglobin 11.2 g/dl (14.0-18.0); Immature Granulocytes # (auto) 0.05 K/uL (0.01-0.20); Immature Granulocytes % (auto) 0.5 %; Lymphocytes # (auto) 1.91 K/uL (1.20-3.40); Lymphocytes % (auto) 20.3 %; Mean Corpuscular Hemoglobin 32.1 pg (25.0-34.0); Mean Corpuscular Hgb Conc 34.6 g/dL (32.0-36.0); Mean Corpuscular Volume 92.8 fL (80.0-100.0); Mean Platelet Volume 9.5 fL (9.4-12.4); Monocytes # (auto) 0.85 K/uL (0.11-0.59); Neutrophils # (auto) 6.49 K/uL (1.40-6.50); Neutrophils % (auto) 69.2 %; Platelet Count 188 K/uL (130-400); RDW Coefficient of Variation 12.3 % (11.5-14.5); RDW Standard Deviation 41.6 fL (36.4-46.3); Red Blood Count 3.49 M/uL (4.70-6.10)
[2023-08-05 06:42] LABS: BUN Creatinine Ratio 23.2 (10-20); Calcium 8.9 mg/dl (8.6-10.3); Creatinine Clr Calc Pharmacy 113.9 ml/min; Est GFR (African American) 106.1 ml/min; Est GFR (Non-African American) 91.5 ml/min; Potassium 4.1 mmol/L (3.5-5.1)
--- NOTE | 2023-08-05 08:29 | Orthopedic Progress Note ---
Date of Service August 05, 2023 Assessment & Plan (1) Neurogenic claudication due to lumbar spinal stenosis: Plan: Don is postoperative day 2 status post L3-S1 decompression and fusion. Will focus on pain control today. Continue with ambulation/physical therapy. Maintain MIRELA drain due to high output. DVT prophylaxis is in the form teds and SCDs. Anticipate discharge home within the next day or 2. Admission and Anticipated Discharge Date Admission Date: August 03, 2023 Subjective Don is postoperative day 2 status post L3-S1 decompression and fusion. He is doing well. A bit more sore today. He had a bowel movement. MIRELA drain output last shift was 215 cc. H&H this morning are 11.2 and 32.4 respectively. Yesterday in physical therapy ambulate 430 feet. No other complaints. Review of Systems Review of Systems: All systems reviewed & are unremarkable except as noted in HPI & below Physical Exam Physical Exam: He sitting on the edge of the bed eating breakfast in no acute distress Alert and oriented x 3 Lumbar dressing is clean dry and intact with functioning MIRELA drain Calf soft nontender bilaterally strength intact bilateral lower extremities Results & Data Vital Signs (Past 12 Hours) Vital Signs Temp Pulse Resp BP Pulse Ox O2 Del Method 08/05/23 07:21 36.4 C L 60 16 137/74 97 Room Air Queries Orthopedic Spine Acute Posthemorrhagic Anemia: Yes Obesity: Yes
--- NOTE | 2023-08-05 15:37 | Hospitalist Progress Note ---
Date of Service August 05, 2023 Assessment & Plan (1) Status post lumbar surgery: (2) Neurogenic claudication due to lumbar spinal stenosis: Plan: S/P L3-S1 decompression and fusion by Dr Melchor on 08/03/2023 Pain management, DVT prophylaxis, diet, activities, wound/drain management and disposition per primary team (3) Diabetes mellitus, type II: Plan: A1c: 6.9 on 07/08/23. Hold metformin on hold. Insulin being managed by glycemic pharmacist (4) Tobacco use: Plan: Chews 1 can snuff daily. Strongly advised to quit smoking (5) Alcohol use: Plan: He drinks 3-4 beers daily. Currently no signs or symptoms of withdrawal. Monitor. On folate thiamine and multivitamin. (6) Obesity: Plan: BMI: 36. Weight loss recommended Plan DVT prophylaxis-Per primary team Disposition-per orthopedics. Stable. Admission and Anticipated Discharge Date Admission Date: August 03, 2023 Subjective Patient was seen and examined at bedside. Complains of neck pain with some bilateral hand numbness-patient states he did notify this to the RN so that this can be relayed to the orthopedic team. No fever, chills, chest pain or shortness of breath no nausea or vomiting. Tolerating diet well without issues Review of Systems Review of Systems: All systems reviewed & are unremarkable except as noted in Subjective Physical Exam Physical Exam: General: Sitting at bedside, not in acute distress, on room air HEENT: EOMI, RUTH, MMM. Prior surgical scar noted in the neck Chest: Clear breath sounds bilaterally, no wheezes or crackles CVS: Regular rate and rhythm, normal heart sounds, no murmur Abdomen: Soft, non tender, not distended, normal bowel sounds Neuro: Awake, alert, oriented, conversing well, non focal Extremities: No edema MSK: Surgical wound covered with dressing, MIRELA drain with serosanguineous output Results & Data Results & Data Vital Signs (Past 12 Hours) Vital Signs Temp Pulse Resp BP Pulse Ox O2 Del Method 08/05/23 07:35 Room Air 08/05/23 07:21 36.4 C L 60 16 137/74 97 Room Air Laboratory Results Short CBC 08/05/23 Range/Units 05:40 WBC 9.40 (4.8-10.8) K/ul Hgb 11.2 L (14.0-18.0) g/dl Hct 32.4 L (42.0-52.0) % Plt Count 188 (130-400) K/uL BMP 08/05/23 05:40 Sodium 136 Potassium 4.1 Chloride 103 Carbon Dioxide 27 BUN 19 Creatinine 0.82 Glucose 163 H Calcium 8.9 Medications Administered Current Inpatient Medications Acetaminophen (Acetaminophen 500 Mg Tab) 1,000 mg PO Q8H PRN PRN Reason: MILD Pain Scale 1,2,3 & Pre PT Stop: 09/02/23 15:09 Al Hydrox/Mg Hydrox/Simethicone (Aluminum/Magnesium Susp 30 Ml Udc) 30 ml PO Q6H PRN PRN Reason: Dyspepsia Stop: 09/02/23 15:09 Bisacodyl (Bisacodyl 10 Mg Supp) 10 mg [place] DAILY PRN PRN Reason: Constipation Stop: 09/02/23 15:09 Dextrose (Dextrose 50% 50 Ml Syringe) 25 - 50 ml IV UD PRN; Protocol PRN Reason: Hypoglycemia Protocol Stop: 09/02/23 15:29 Diphenhydramine HCl (Diphenhydramine Capsule 25 Mg Cap) 25 mg PO Q6H PRN PRN Reason: Allergic Rhinitis/Insomnia Stop: 09/02/23 15:09 Famotidine (Famotidine 20 Mg Tab) 20 mg PO Q12H PRN PRN Reason: Dyspepsia Stop: 09/02/23 15:09 Folic Acid (Folic Acid 1 Mg Tab) 1 mg PO QAM [facility] Stop: 09/03/23 08:59 Last Admin: 08/05/23 08:46 Dose: 1 mg Glucagon (Glucagon For Inj 1 Mg Vial) 1 mg SQ UD PRN; Protocol PRN Reason: Hypoglycemia Protocol Stop: 09/02/23 15:29 Glucose (Glucose 10 Tab/Tube) 4 - 8 tab PO UD PRN; Protocol PRN Reason: Hypoglycemia Treatment Stop: 09/02/23 15:29 Glucose (Glucose 40% Gel 15 Gm Tube) 15 - 30 gm PO UD PRN; Protocol PRN Reason: Hypoglycemia Protocol Stop: 09/02/23 15:29 Hydromorphone HCl (Hydromorphone Inj 0.5 Mg/0.5 Ml Syr) 0.5 mg IV Q3H PRN PRN Reason: MODERATE Pain (Scale 4,5,6) & Pre PT Stop: 08/17/23 15:09 Hydromorphone HCl (Hydromorphone Inj 1 Mg/Ml Syringe) 1 mg IV Q3H PRN PRN Reason: SEVERE Pain (Scale 7,8,9,10) Stop: 08/17/23 15:09 Last Admin: 08/05/23 08:43 Dose: 1 mg Hydroxyzine HCl (Hydroxyzine Hcl 25 Mg Tab) 25 mg PO Q8H PRN PRN Reason: Anxiety Stop: 09/02/23 15:09 Promethazine HCl 12.5 mg/ (Sodium Chloride) 50.5 mls @ 202 mls/hr IV Q6H PRN PRN Reason: Nausea &/or Vomiting Stop: 09/02/23 15:09 Lorazepam 0.5 mg/ Syringe 0.5 mls @ 2 mls/min IV Q8H PRN; Protocol PRN Reason: Sedation/Anxiety Stop: 09/02/23 15:09 Dexamethasone 6 mg/ Syringe 1.5 mls @ 1 mls/min IV DAILY [facility] Stop: 08/06/23 09:02 Last Admin: 08/05/23 08:47 Dose: 1 mls/min Influenza Virus Vaccine Quadrival (Do Not Administer Flu Vaccine) 1 each N/A PRN PRN PRN Reason: Notification Stop: 09/02/23 15:09 Insulin Aspart (Insulin Aspart Per Unit Charge) 0 units SC ACHS [facility] Stop: 09/02/23 16:29 Last Admin: 08/05/23 12:36 Dose: 14 units Insulin Glargine (Lantus Per Unit Charge) 10 units SC BID [facility] Stop: 09/03/23 08:59 Last Admin: 08/05/23 08:57 Dose: 10 units Lorazepam (Lorazepam 0.5 Mg Tab) 0.5 mg PO Q8H PRN PRN Reason: Sedation/Anxiety Stop: 09/02/23 15:09 Lorazepam (Lorazepam 1 Mg Tab) 1 mg PO ONE PRN; Protocol PRN Reason: EtoH Withdrawal AWSS 6,7,8,9,10 Magnesium Hydroxide (Magnesium Hydroxide Susp 30 Ml Udc) 30 ml PO Q24H PRN PRN Reason: Constipation Stop: 09/02/23 15:09 Metoclopramide HCl (Metoclopramide Hcl Inj 5 Mg/Ml 2 Ml Vial) 10 mg IV Q6H PRN PRN Reason: Nausea &/or Vomiting Stop: 09/02/23 15:09 Miscellaneous (Carbohydrates For Hypoglycemia ) 15 - 30 gm PO UD PRN PRN Reason: Hypoglycemia Protocol Stop: 09/02/23 15:29 Miscellaneous Information (Pharmacy Glycemic Mgmt Consult) 1 each N/A UD PRN PRN Reason: Consult Stop: 09/02/23 15:09 Multivitamins (Multivitamin Tab) 1 tab PO QAM [facility] Stop: 09/03/23 08:59 Last Admin: 08/05/23 08:47 Dose: 1 tab Naloxone HCl (Naloxone Hcl 0.4 Mg/1 Ml Vial/Carp) 0.1 mg IV Q5M PRN PRN Reason: Oversedation/Resp depression Stop: 09/02/23 15:09 Ondansetron HCl (Ondansetron Inj 2 Mg/Ml 2 Ml Vial) 4 mg IV Q6H PRN PRN Reason: Nausea &/or Vomiting Stop: 09/02/23 15:09 Ondansetron HCl (Ondansetron 4 Mg Od Tab) 4 mg PO Q6H PRN PRN Reason: Nausea Stop: 09/02/23 15:09 Oxycodone HCl (Oxycodone Hcl Ir 5 Mg Tab (Immediate Release)) 5 - 10 mg PO Q4H PRN PRN Reason: Pain & Pre PT Stop: 08/17/23 15:09 Last Admin: 08/05/23 12:36 Dose: 10 mg Pneumococcal Polyvalent Vaccine (Do Not Administer Pneumococcal Vaccine) 1 each N/A PRN PRN PRN Reason: Notification Stop: 09/02/23 15:09 Polyethylene Glycol (Polyethylene (Miralax) 17 Gm Pack) 17 gm PO Q6 [facility] Stop: 09/03/23 05:59 Last Admin: 08/05/23 12:24 Dose: Not Given Senna/Docusate Sodium (Docusate Sodium/Senna 50/8.6mg Tab) 2 tab PO HS [facility] Stop: 09/02/23 20:59 Last Admin: 08/04/23 20:17 Dose: 2 tab Sodium Biphosphate/Sodium Phosphate (Sod Phosphate/Sod Biphosphate Enema 132 Ml Btl) 132 ml [place] ONE PRN PRN Reason: Constipation Stop: 09/02/23 15:09 Thiamine HCl (Thiamine Hcl 100 Mg Tab) 100 mg PO QAM [facility] Stop: 09/03/23 08:59 Last Admin: 08/05/23 08:47 Dose: 100 mg Tramadol HCl (Tramadol Hcl 50 Mg Tablet) 50 - 100 mg PO Q4H PRN PRN Reason: Moderate-Severe pain & Pre PT Stop: 09/02/23 15:09
--- NOTE | 2023-08-06 08:15 | Orthopedic Progress Note ---
Date of Service August 06, 2023 Assessment & Plan (1) Neurogenic claudication due to lumbar spinal stenosis: Plan: At this time we will obtain x-rays and MRI of the cervical spine to rule out any neural compression. Will maintain bedrest today. Make further conditions after review of imaging. Drain was removed this morning. Admission and Anticipated Discharge Date Admission Date: August 03, 2023 Subjective Patient continues to complain of neck pain and tingling in his hands. He is marked improvement of his leg symptoms. His back pain well-controlled. Physical Exam Physical Exam: On exam is good strength testing lower extremities. Upper extremity strength appears to be intact he has some tenderness palpation of the paracervical musculature. Results & Data Vital Signs (Past 12 Hours) Vital Signs Temp Pulse Resp BP Pulse Ox O2 Del Method 08/06/23 07:58 36.4 C L 55 L 16 169/66 H 99 Room Air Queries Orthopedic Spine Acute Posthemorrhagic Anemia: Yes Obesity: Yes
--- NOTE | 2023-08-06 09:34 | XRay Report ---
XR cervical spine 2 or 3V HISTORY: 68 years-old Male neck pain acute neck pain COMPARISON: CT cervical spine 12/07/2015 TECHNIQUE: 3 views of the cervical spine FINDINGS: Extensive postoperative changes of the cervical spine redemonstrated which includes anterior plate an d screw fusion at C3-C4 with posterior interbody rods and screw fusion at extending from C3-T2. Bridg ing osteophytosis is noted with straightening of the normal cervical lordosis. Moderate multilevel fa cet arthrosis. Atherosclerosis of the carotid bulbs. No acute fracture or subluxation. No evidence of hardware complication. IMPRESSION: 1. No acute fracture or subluxation. 2. Degenerative and postoperative changes as above. ACT 112: Negative or not required by law. The above report was generated using voice recognition software. It may contain grammatical, syntax o r spelling errors. Electronically signed by: Dinh Davila M.D. 08/06/2023 9:32 AM
--- NOTE | 2023-08-06 15:42 | Hospitalist Progress Note ---
Date of Service August 06, 2023 Assessment & Plan (1) Status post lumbar surgery: (2) Neurogenic claudication due to lumbar spinal stenosis: Plan: S/P L3-S1 decompression and fusion by Dr Melchor on 08/03/2023 Pain management, DVT prophylaxis, diet, activities, wound/drain management and disposition per primary team (3) Diabetes mellitus, type II: Plan: A1c: 6.9 on 07/08/23. Hold metformin on hold. Insulin being managed by glycemic pharmacist (4) Tobacco use: Plan: Chews 1 can snuff daily. Strongly advised to quit smoking (5) Alcohol use: Plan: He drinks 3-4 beers daily. Currently no signs or symptoms of withdrawal. Monitor. On folate thiamine and multivitamin. (6) Obesity: Plan: BMI: 36. Weight loss recommended Plan DVT prophylaxis-Per primary team Disposition-per orthopedics. Admission and Anticipated Discharge Date Admission Date: August 03, 2023 Subjective Patient was seen and examined at bedside. States he still has the pain in the neck and hand numbness. Ortho plan for x-ray neck and MRI reviewed. No fever, chills, chest pain, shortness of breath, nausea or vomiting. Tolerating diet well. Had BM. Voiding without issues Review of Systems Review of Systems: All systems reviewed & are unremarkable except as noted in Subjective Physical Exam Physical Exam: General: Sitting at bedside, not in acute distress, on room air HEENT: EOMI, RUTH, MMM. Prior surgical scar noted in the neck Chest: Clear breath sounds bilaterally, no wheezes or crackles CVS: Regular rate and rhythm, normal heart sounds, no murmur Abdomen: Soft, non tender, not distended, normal bowel sounds Neuro: Awake, alert, oriented, conversing well, non focal Extremities: No edema MSK: Surgical wound covered with dressing, Results & Data Results & Data Vital Signs (Past 12 Hours) Vital Signs Temp Pulse Resp BP Pulse Ox O2 Del Method 08/06/23 07:58 36.4 C L 55 L 16 169/66 H 99 Room Air
--- NOTE | 2023-08-06 18:04 | Magnetic Resonance Report ---
MRI OF THE CERVICAL SPINE WITHOUT IV CONTRAST CLINICAL HISTORY: Neck and arm pain. COMPARISON STUDY: CT scan of the cervical spine dated 12/07/2015. Cervical spine radiographs dated 07/19. TECHNIQUE: MRI of the cervical spine was performed utilizing various T1 and T2-weighted sequences in the axial and sagittal planes. IV contrast was not administered for this examination. The examination is compromised by susceptibility artifact from extensive metallic spinal hardware. There is also sig nificant motion artifact. FINDINGS: Cervical spine: Vertebral body height and alignment are maintained throughout the cervical spine. The re is straightening of the cervical lordosis. There is postoperative change from anterior spinal fusi on at C3-C4. There is postsurgical change from laminectomy and posterior fusion seen from C3 to T2. I ntraventricular screws are present at all levels with the exception of C7. The atlantodental articula tion is maintained. No destructive bony lesion is seen. Intervertebral discs: There has been discectomy at C3-C4 with near complete bony fusion at this level . Disc desiccation and mild loss of height is seen at the remaining cervical levels. Spinal cord: There is a focus of myelomalacia at C4-C5. There is thinning of the cervical cord at C2- 3 secondary to severe spinal stenosis. No significant cord edema is identified. C2-C3: A large posterior disc osteophyte complex significantly effaces the ventral cord. There is als o hypertrophy of the ligamentum flavum. There is severe central canal stenosis at this level with a m inimum AP diameter of 4.5 mm. Lateral disc bulge is seen bilaterally, left greater than right. In con junction with facet arthropathy, there is moderate to severe left and mild right neural foraminal mason nosis. C3-C4: The central canal and neural foramina appear patent. C4-C5: The central canal and neural foramina appear patent. C5-C6: The central canal and neural foramina appear patent. C6-C7: The central canal is clear. Facet arthropathy is of no consequence. The neural foramina appear patent. C7-T1: The central canal is clear. Facet arthropathy is of no consequence. The neural foramina appear patent. T1-T2: Grossly unremarkable. Soft tissues: The prevertebral and paraspinous soft tissues are normal as imaged. Brain parenchyma: The imaged brain parenchyma at the skull base is normal as visualized. IMPRESSION: 1. There is severe spinal stenosis at C2-C3 with effacement of the cervical cord. No cord edema is id entified. 2. Extensive postsurgical change throughout the remainder of the cervical spine as above. The central canal is otherwise widely patent throughout the cervical region. See discussion for detailed level b y level analysis. 3. There is a small focus of myelomalacia within the cervical cord at C4-C5. 4. No destructive bony process is seen. Dictated: 08/06/2023 3:05 PM Transcribed: 08/06/2023 3:26 PM Kalpana [id number] [email or web address] [id number] Electronically signed by: Patricio Jiang M.D. 08/06/2023 6:01 PM
[2023-08-07] MEDS: LANTUS PER UNIT CHARGE SC SCH (08:41)
--- NOTE | 2023-08-07 11:17 | Discharge Summary ---
Date of Service August 07, 2023 Admission HPI Per Admitting Provider This is a 68-year-old male presents with chronic persistent back and bilateral leg pain after the course of nonoperative care is here for surgical invention. Principal Diagnosis Lumbar spinal stenosis with neurogenic claudication Discharge Data Allergies Allergy/AdvReac Type Severity Reaction Status Date / Time adhesive AdvReac Intermediate SKIN TEARS Verified 08/03/23 08:08 Consultations 08/03/23 15:10 Consult Hospitalist Routine Procedures Performed Operation Date: 08/03/23 09:35 Actual Procedures p L3-S1 Decompression and Fusion with Spinal Cord Monitoring(Not Applicable) - Ty Melchor DO Ordered Studies 08/03/23 07:45 FL lumbar spine 2-3V Routine 08/06/23 08:13 MR cervical spine wo con Urgent Hospital Course (1) Neurogenic claudication due to lumbar spinal stenosis: Patient underwent multilevel lumbar decompression fusion tolerated this well was taken to orthopedic for postoperative postop that he tolerated physical therapy well. MIRELA drain decreased appropriate. Excellent strength testing lower extremities. He did struggle with cervicalgia and imaging demonstrates adjacent level stenosis C2-C3. At this point we will allow him to discharge home. He is going to follow-up with his cervical surgeon in [place] next week. Will see him in the office as scheduled. Discharge orders instructions from the chart for further review. Total Time Total Time Spent Total Time Spent (In Minutes): 20 minutes Discharge Plan Discharge Items Patient Disposition: Home - Self-Care Reason For Visit: Spinal Stenosis, Lumbar Region with Neurogenic Cla Discharge Diagnosis: Lumbar spinal stenosis with neurogenic claudication Activity: As commented below Non-emergency contact: Primary Care Provider Call non-emergency contact if: you have any medication questions Follow-up/Referrals: Graciela Villagomez D.OKevin [Non-Staff] - Diet: Regular Addtl Attending Provider Instructions: ACTIVITY RECOMMENDATIONS: SELF CARE INSTRUCTIONS AFTER THORACIC/LUMBAR FUSIONS 1. You may walk to your tolerance. It is good exercise for your legs and back. Expect some back and intermittent leg aches and pains. 2. You may perform "counter-top" level activities (make a sandwich, romaine with a project, etc.). 3. No bending or lifting of more than 10 pounds or back twisting of any nature (roll like a log when turning in bed). 4. You may ride in a car for 20-30 minutes at a time. No driving until after your first visit with your doctor. 5. Frequent changes of position and restricting sitting to 30 minutes at a time will help limit the amount of back spasms and stiffness you may experience. 6. You may discontinue the use of ambulatory aids (cane, crutches, etc.) once your strength and confidence allow. 7. You may infantry officer the shower and let water strike your incision when you arrive home at least once daily. Do not take a tub bath, sit in a hot tub or go into a swimming pool until after your first recheck in the office. SPECIAL CARE INSTRUCTIONS: VERY IMPORTANT TO READ AND REVIEW A. Your surgical incision has been closed with a cosmetic suture under the skin that will dissolve in about 6 weeks. In 14 days, you can use a pair of clean scissors and cut the suture that is left outside of the skin at the ends of your incision. 1. The small skin tapes can be removed 7 days after surgery if they have not fallen off by that point. 2. You may keep the wound open to air as much as possible to promote healing after post-op day number 5 unless told otherwise by your doctor. 3. If you think the wound looks like it is becoming infected (redness or worsening drainage) and/or you are experiencing fever, chill or worsening back pain and muscle spasms, contact the office so that we may evaluate you as soon as possible. B. Complications are uncommon, but please contact us if you have any signs or symptoms of: 1. wound infection (fever higher than 102.5 degrees F, redness, separation of wound, drainage, or increasing pain from the incision) 2. blood clots in legs (pain, swelling, redness and warmth in legs) 3. urinary tract infection (fever higher than 102.5 degrees F, burning upon urination or increased frequency of urination) 4. nerve problems (inability to walk on your toes or heels, numbness, loss of bowel or bladder control) 5. any other symptoms that concern you C. Please call the office at if you have any concerns or questions about your operation or recovery. D. No smoking! Smoking drastically decreases the chance of a solid fusion. E. Do not take any anti-inflammatory medications (Indocin, Advil, Motrin, Aspirin, Naprosyn, etc.) as these may inhibit the chance of a solid fusion. Tylenol is okay to take for pain. MANAGING PAIN AFTER SPINAL SURGERY 1. Narcotic medication is intended for short-term use and will be provided for surgical pain. Surgical pain usually lasts for a period of 4-6 weeks. Narcotic medication includes Percocet, Vicodin, Darvocet, Tylenol #3 or Lortab. 2. Longer-term pain is more appropriately treated with non-narcotic medication such as Tylenol ES. 3. Muscle spasm is not appropriately treated with narcotics. Muscle relaxers such as Soma, Flexeril or Skelaxin can be used along with Tylenol ES. 4. Remember that we all live with some "aches and pains". This is not unusual or uncommon after an injury or as we get older. a. Back pain is expected and may include muscle spasms for 4 to 6 weeks after surgery. The pain should gradually improve. If the pain worsens for no apparent reason, please contact the office. b. Intermittent leg pain may also be experienced and should not be concerned about unless it worsens for no apparent reason. If so, please contact the office. 5. We will provide appropriate medication within the normal guidelines of their prescribed use. We will also be very cautious and aware of potential abuse and extended duration of patients' medication needs. a. Pain medications are for your comfort and to assist with sleep and rest so that the tissue can heal. They are not provided in order to return to normal activity and should not be used through the day. To do so or worsening pain at night can result from ongoing tissue damage and development of tolerance to the prescribed medicine. 6. Please allow 2-3 days to process refills. Prescriptions will not be mailed but must be picked up at the office. FOLLOW UP VISIT: Keep your scheduled follow-up appointment. Any questions, please call the office at . Pending Studies at Discharge: No Stand-Alone Forms: [employer], Smoking Cessation Medications and DC Order Prescriptions: New tramadol 50 mg tablet 50 mg PO Q6H PRN (Reason: pain, moderate) Qty: 30 0RF oxycodone 5 mg tablet 5 mg PO Q6H PRN (Reason: pain) Qty: 30 0RF Continued metformin 500 mg Tablet 1,000 mg PO QPM Discharge Orders: Discharge Order (Routine); Ordered 08/07/23 Ordered By: Ty Melchor Admission Data Admit Date/Time: 08/03/23 13:40 Attending Provider: Ty Melchor Admit Provider: Ty Melchor Primary Care Provider: PCP,NO Other Providers: Gladys Minaya; Alex Vergara
--- NOTE | 2023-08-07 11:28 | Pharmacy Report ---
Pharmacy Glycemic Short Note 2 - Date of Service August 07, 2023 - Glycemic Short BSG Results (Last 24 hours): 08/06/23 08/06/23 08/06/23 11:32 16:31 20:19 POC Glucose 209 H 195 H 108 H 08/07/23 07:27 POC Glucose 111 H OUTPATIENT ANTIDIABETIC REGIMEN: * A1c 6.9% 07/08/23 * Metformin 1000 mg QD ASSESSMENT: 08/06: * POD #4. Patient received last dose of IV Dexamethasone yesterday. No steroids ordered today. * Basal insulin reduced to 10 units only in the AM. Novolog parameters loosened this morning to between stress of 1 and 2. 08/04/23: * Patient POD #1, dexamethasone 6mg IV daily ordered * Patient received 10 units of lantus with fasting 159 mg/dL this morning- will start 10 units BID * Novolog initiated weight based stress of 2, will tighten carb ratio slightly PLAN FOR INPATIENT GLYCEMIC CONTROL: * Hold outpatient oral diabetes medications * Basal insulin * Lantus 10 units SQ QAM * Bolus insulin * NovoLog per scale ACHS or Q6hrs while NPO * Goal Range: Low 110 mg/dL - High 140 mg/dL * Correction Factor: 25 mg/dL/unit * Nutritional / Prandial insulin per carb ratio of 1 unit per 8 grams CHO consumed
--- NOTE | 2023-08-07 12:50 | Hospitalist Progress Note ---
Date of Service August 07, 2023 Assessment & Plan (1) Status post lumbar surgery: (2) Neurogenic claudication due to lumbar spinal stenosis: Plan: S/P L3-S1 decompression and fusion by Dr Melchor on 08/03/2023 Further management per primary team (3) Diabetes mellitus, type II: Plan: A1c: 6.9 on 07/08/23. Continue home meds at discharge (4) Tobacco use: Plan: Chews 1 can snuff daily. Strongly advised to quit smoking (5) Alcohol use: Plan: He drinks 3-4 beers daily. Currently no signs or symptoms of withdrawal. Recommended to quit drinking (6) Obesity: Plan: BMI: 36. Weight loss recommended Plan DVT prophylaxis-Per primary team Disposition- Being discharged per primary team. Stable. Admission and Anticipated Discharge Date Admission Date: August 03, 2023 Subjective Patient was seen and examined at bedside. He still has the neck pain with hand numbness which has not changed. No other issues. Discussed the MRI findings. Review of Systems Review of Systems: All systems reviewed & are unremarkable except as noted in Subjective Physical Exam Physical Exam: General: Sitting at bedside, not in acute distress, on room air HEENT: EOMI, RUTH, MMM. Prior surgical scar noted in the neck Chest: Clear breath sounds bilaterally, no wheezes or crackles CVS: Regular rate and rhythm, normal heart sounds, no murmur Abdomen: Soft, non tender, not distended, normal bowel sounds Neuro: Awake, alert, oriented, conversing well, non focal Extremities: No edema MSK: Surgical wound covered with dressing Results & Data Results & Data Vital Signs (Past 12 Hours) Vital Signs Temp Pulse Pulse Resp BP BP Pulse Ox 08/07/23 11:33 36.4 C L 63 53 L 16 140/67 144/71 H 98 08/07/23 07:26 36.4 C L 53 L 16 140/67 98 O2 Del Method 08/07/23 11:33 08/07/23 07:26 Room Air
== END 2023-08-07 15:09 | disposition home or self-care (01) | DRG 454 ==
LOC: ASU 07:34 → 3N 13:40

== ENCOUNTER 2023-09-01 12:21 | Inpatient (IN) ==
--- NOTE | 2023-09-01 13:15 | Emergency Department Note ---
History of Present Illness General Chief complaint: Back Injury/Pain Stated complaint: HAD SURGERY, NEEDS CLEANED UP Time Seen by Provider: 09/01/23 13:10 History of Present Illness Maximum Pain Intensity: 8 This is a 68-year-old male who presents to emergency department via private vehicle with complaints of "recent spine surgery, need for the surgery". The patient notes that on 08/03/2023 he underwent L-spine surgery by Dr. Melchor here at this hospital. Patient notes that he was overall doing well however over the past few weeks notes progressively worsening low back pain that radiates into the right leg region. Patient did follow-up with the spine surgeons office and had an MRI performed recently. He notes the findings indicated further intervention is needed. He was referred here today for admission and I&D of the back to be performed by his spine surgeon. The patient denies any fevers. Current pain 8/10. No loss of control or bowel or bladder. No genital numbness or tingling. Home Medications Medication Instructions Recorded Confirmed Type metformin 500 mg tablet 1,000 mg PO QPM 06/24/23 09/01/23 History oxycodone 5 mg tablet 5 mg PO Q6H PRN pain #30 tabs 08/07/23 09/01/23 Rx tramadol 50 mg tablet 50 mg PO Q6H PRN pain, moderate 08/07/23 09/01/23 Rx #30 tabs cyclobenzaprine 10 mg tablet 10 mg PO QID 09/01/23 09/01/23 History Allergies Allergy/AdvReac Type Severity Reaction Status Date / Time adhesive AdvReac Intermediate SKIN TEARS Verified 09/01/23 18:01 Past Med/Surg History Problem List (Updated 09/01/23 @ 19:05 by Callie Barton PA-C) Bilateral leg pain Numbness and tingling of both legs Low back pain (Acute) Alcohol use Obesity Tobacco use Diabetes mellitus, type II Status post lumbar surgery 08/03/23: L3-S1 decompression, fusion. Dr Melchor. [facility] Neurogenic claudication due to lumbar spinal stenosis Encounter for pre-operative examination Left knee DJD (Acute) Medical History History of anesthesia reaction reports waking up in middle of 2 surgeries History of COVID-19 (~2022) lab test, resolved Diabetes NIDDM Surgical History History of esophagogastroduodenoscopy (EGD) History of colonoscopy Hx of hand surgery x 2, bilat Hx of tonsillectomy Hx of vasectomy History of bilateral knee replacement Hx of knee surgery x 3 arthroscopic History of back surgery lumbar disectomy Hx of shoulder surgery rt Hx of neck surgery x 3 Family History Other Cancer Diabetes Dyslipidemia Hypertension Stroke Social History Smoking Status: Unknown if ever smoked Tobacco Type: Smokeless Tobacco (Dip or Chew) Second Hand Exposure: No; Do You Dip or Chew Tobacco: Yes (1/2 can/day (advised)); Hx Alcohol Use: Yes Alcohol type: beer Hx Substance Use: No Preferred Language: Cypriot Communication Ability: Effective Wet Sander Required: No Beliefs That Will Affect Care: None Current Living Situation: Spouse Feels Safe at Home: Yes Assistive Devices: Cane, Walker and Wheelchair Review of Systems A total of 10 systems reviewed and were otherwise negative Physical Exam Vital Signs Vital Signs - 24 hr 09/01/23 12:31 Temperature 36.5 C Temperature Source Temporal Artery Scan Pulse Rate 62 Respiratory Rate 20 Respiratory Effort / Characteristics Non-Labored Spontaneous Respiratory Depth Normal Blood Pressure 175/79 H Blood Pressure Mean 111 Pulse Oximetry 95 Oxygen Delivery Method Room Air Sepsis Recent Fever Within 48 Hours No Sepsis New/Unexplained Change in Mental Status No Sepsis Action Taken by Nursing No Action Required VITAL SIGNS - Vital signs and nursing notes were reviewed. Hypertensive, otherwise stable. GENERAL -68-year-old male appearing his stated age who is in no acute distress. Communicates well with provider and answers questions appropriately. SKIN - Without rashes. No meningeal or petechial rash. There is a well-healed surgical incision vertically oriented overlying the L-spine. There is no erythema or dehiscence. No purulence or crepitus. HEAD - NC/AT. EYES - PERRL with EOMI bilaterally. Sclera anicteric. EARS - No deformities of external structures noted on gross examination bilaterally. NOSE - Midline and without cyanosis. MOUTH/OROPHARYNX - Without perioral cyanosis. NECK - Neck with FROM. No nuchal rigidity. LUNGS - Chest wall symmetric without accessory muscle use, intercostals retractions, or central cyanosis. Normal vesicular breath sounds CTA B/L. No wheezes, rales, or rhonchi appreciated. CARDIAC - RRR ABDOMEN - Abdominal contour normal without pulsations or visible masses. BS normoactive all four quadrants. No tenderness, palpable masses, hepatosplenomegaly, or ascites noted. EXTREMITIES - No clubbing or peripheral cyanosis. +5/5 strength noted in UE/LE bilaterally. NEUROLOGIC - Cranial nerves II through XII grossly intact. PSYCH -alert, oriented and pleasant on exam Course Administered Medications Cyclobenzaprine HCl (Cyclobenzaprine Hcl 10 Mg Tab) 10 mg PO QID [facility] Stop: 10/01/23 16:59 Last Admin: 09/01/23 21:15 Dose: 10 mg Documented By: Admin: 09/01/23 18:43 Dose: Not Given Documented By: VIDA Sodium Chloride (Nss) 1,000 mls @ 75 mls/hr IV .[id number] [facility] Stop: 10/01/23 16:05 Last Admin: 09/01/23 18:43 Dose: 75 mls/hr Documented By: VIDA Insulin Aspart (Insulin Aspart Per Unit Charge) 0 units SC ACHS [facility] Stop: 10/01/23 18:39 Last Admin: 09/01/23 21:15 Dose: Not Given Documented By: Admin: 09/01/23 21:15 Dose: Not Given Documented By: NILS Oxycodone HCl (Oxycodone Hcl Ir 5 Mg Tab (Immediate Release)) 5 - 10 mg PO Q4H PRN PRN Reason: mod to severe pain Stop: 09/15/23 16:05 Last Admin: 09/01/23 21:15 Dose: 10 mg Documented By: NILS Discontinued Medications Hydromorphone HCl (Hydromorphone Inj 0.5 Mg/0.5 Ml Syr) 0.5 mg IV NOW STA Stop: 09/01/23 15:16 Last Admin: 09/01/23 15:37 Dose: 0.5 mg Documented By: TERESO Medical Decision Making Laboratory Data 09/01/23 12:48 09/01/23 12:48 Lab Results 05/14/24 Range/Units 12:48 WBC 5.67 (4.8-10.8) K/ul RBC 4.37 L (4.70-6.10) M/uL Hgb 14.1 (14.0-18.0) g/dl Hct 41.2 L (42.0-52.0) % MCV 94.3 (80.0-100.0) fL MCH 32.3 (25.0-34.0) pg MCHC 34.2 (32.0-36.0) g/dL RDW Std Deviation 44.3 (36.4-46.3) fL RDW Coeff of Wilmer 12.8 (11.5-14.5) % Plt Count 202 (130-400) K/uL MPV 9.2 L (9.4-12.4) fL Immature Gran % (Auto) 1.4 % Neut % (Auto) 57.1 % Lymph % (Auto) 29.5 % [place] % (Auto) 6.3 % Eos % (Auto) 4.8 % Baso % (Auto) 0.9 % Neut # (Auto) 3.24 (1.40-6.50) K/uL Lymph # (Auto) 1.67 (1.20-3.40) K/uL [place] # (Auto) 0.36 (0.11-0.59) K/uL Eos # (Auto) 0.27 (0.00-0.50) K/uL Baso # (Auto) 0.05 (0.00-0.20) K/uL Immature Gran # (Auto) 0.08 (0.01-0.20) K/uL PT 10.5 (9.0-12.0) Seconds INR 1.0 (0.9-1.1) APTT 26 (21-31) Seconds PTT Ratio 1.0 Sodium 139 (136-145) mmol/L Potassium 3.7 (3.5-5.1) mmol/L Chloride 104 (98-107) mmol/L Carbon Dioxide 30 (21-32) mmol/L Anion Gap 5 (3-11) BUN 15 (6-23) mg/dl Creatinine 0.81 (0.6-1.4) mg/dl Est Cr Clr Drug Dosing 114.2 ml/min Est GFR ( Amer) 106.6 ml/min Est GFR (Non-Af Amer) 92.0 ml/min BUN/Creatinine Ratio 18.5 (10-20) Glucose 113 H (70-99(Fasting)) mg/dl Calcium 9.6 (8.6-10.3) mg/dl Total Bilirubin 0.6 (0.2-1.0) mg/dl AST 16 (13-39) U/L ALT 16 (7-52) U/L Alkaline Phosphatase 106 H (34-104) U/L Total Protein 7.3 (6.0-8.3) gm/dl Albumin 4.0 (3.4-5.0) gm/dl Globulin 3.3 (2.5-4.0) gm/dl Albumin/Globulin Ratio 1.2 (0.9-2) MDM Narrative Patient was seen and evaluated as above in the B pod waiting room noting period of elevated volume and acuity in the emergency department. Review was performed of nursing notes and vital signs. I did review pertinent previous visits and patient history. After obtaining a thorough history and physical examination the above work up was performed. Patient presents to us today for assessment of low back pain with recent L-spine surgery. He was informed by his surgical team to present here for admission and I&D of the spine. Patient denies any fevers. He notes recent outpatient MRI of the L-spine. Patient denies any infectious symptoms. Options of care were discussed with the patient. IV access was established. Labs were drawn. There is no leukocytosis or concerning anemia. No emergent metabolic disturbance. Mild hyperglycemia 113. Coags normal. At 1:35 PM: I spoke with Dr. Melchor, the patient's established spine surgeon. He does recommend to proceed with admission, and ultimately will likely undergo I&D. He will perform the surgery. He notes that the patient has already had imaging and therefore further imaging not needed at this time. Patient amenable to this plan noting that this was the plan prior to arrival here. Please refer to further documentation regarding his stay. I did order IV analgesia for the patient pending admission. Case was discussed with the attending physician. GCS: 15 In the evaluation and treatment of this patient the following differential diagnosis entertained: Fracture, dislocation, subluxation, cauda equina syndrome, AAA, diverticulitis, appendicitis, torsion, osteomyelitis, piriformis syndrome, strain, sprain, among others. Impression & Plan Low back pain Discharge Plan Visit Data Chief Complaint: Back Injury/Pain Stated Complaint: HAD SURGERY, NEEDS CLEANED UP ED Provider: Curly Dhillon ED Midlevel Provider: Manny Palmer Discharge Problem: Low back pain Patient Disposition: Admitted As Inpatient Condition: Good Discharge Instructions Interventions: ED Discharge Assessment Last Done: 09/01/23 17:22 Discharge Problem: Low back pain Qualifiers: Chronicity: unspecified Back pain laterality: unspecified Sciatica presence: u nspecified whether sciatica present Qualified Code(s): M54.50 - Low back pain, unspecified
[2023-09-01 13:19] LABS: Basophils # (auto) 0.05 K/uL (0.00-0.20); Basophils % (auto) 0.9 %; Eosinophils # (auto) 0.27 K/uL (0.00-0.50); Eosinophils % (auto) 4.8 %; Hematocrit (blood only) 41.2 % (42.0-52.0); Hemoglobin 14.1 g/dl (14.0-18.0); Immature Granulocytes # (auto) 0.08 K/uL (0.01-0.20); Immature Granulocytes % (auto) 1.4 %; Lymphocytes # (auto) 1.67 K/uL (1.20-3.40); Lymphocytes % (auto) 29.5 %; Mean Corpuscular Hemoglobin 32.3 pg (25.0-34.0); Mean Corpuscular Hgb Conc 34.2 g/dL (32.0-36.0); Mean Corpuscular Volume 94.3 fL (80.0-100.0); Mean Platelet Volume 9.2 fL (9.4-12.4); Monocytes # (auto) 0.36 K/uL (0.11-0.59); Monocytes % (auto) 6.3 %; Neutrophils # (auto) 3.24 K/uL (1.40-6.50); Neutrophils % (auto) 57.1 %; Platelet Count 202 K/uL (130-400); RDW Coefficient of Variation 12.8 % (11.5-14.5); RDW Standard Deviation 44.3 fL (36.4-46.3); Red Blood Count 4.37 M/uL (4.70-6.10); White Blood Count 5.67 K/ul (4.8-10.8)
[2023-09-01 13:41] LABS: Albumin Globulin Ratio 1.2 (0.9-2); BUN Creatinine Ratio 18.5 (10-20); Bilirubin,Total 0.6 mg/dl (0.2-1.0); Calcium 9.6 mg/dl (8.6-10.3); Creatinine Clr Calc Pharmacy 114.2 ml/min; Est GFR (African American) 106.6 ml/min; Globulin 3.3 gm/dl (2.5-4.0); Potassium 3.7 mmol/L (3.5-5.1); Total Protein 7.3 gm/dl (6.0-8.3)
[2023-09-01 13:45] LABS: Partial Thromboplastin Time 26 Seconds (21-31); Prothrombin Time 10.5 Seconds (9.0-12.0)
--- NOTE | 2023-09-01 15:11 | Anesthesiology Consultation ---
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 History Surgery Operation Date: 09/02/23 07:45 Proposed Procedures p Incision and Drainage Lumbar Spine - Ty Melchor DO Height/Weight Height: 5 ft 11 in Weight: 115.2 kg Allergies Allergy/AdvReac Type Severity Reaction Status Date / Time adhesive AdvReac Intermediate SKIN TEARS Verified 08/03/23 08:08 Medications Home Medications Medication Instructions Recorded Confirmed Last Taken metformin 500 mg tablet 1,000 mg PO QPM 06/24/23 09/01/23 08/02/23 22:00 oxycodone 5 mg tablet 5 mg PO Q6H PRN pain #30 tabs 08/07/23 09/01/23 Unknown tramadol 50 mg tablet 50 mg PO Q6H PRN pain, moderate 08/07/23 09/01/23 Unknown #30 tabs cyclobenzaprine 10 mg tablet 10 mg PO QID 09/01/23 09/01/23 Unknown Past Medical History Medical History History of anesthesia reaction reports waking up in middle of 2 surgeries History of COVID-19 (~2022) lab test, resolved Diabetes NIDDM Past Family History Family History Other Cancer Diabetes Dyslipidemia Hypertension Stroke Past Surgical History Surgical History History of esophagogastroduodenoscopy (EGD) History of colonoscopy Hx of hand surgery x 2, bilat Hx of tonsillectomy Hx of vasectomy History of bilateral knee replacement Hx of knee surgery x 3 arthroscopic History of back surgery lumbar disectomy Hx of shoulder surgery rt Hx of neck surgery x 3 Social History Smoking Status: Unknown if ever smoked Do You Dip or Chew Tobacco: Yes (1/2 can/day (advised)) Hx Alcohol Use: Yes Alcohol type: beer alcohol intake frequency: 3 or more drinks per day (4-5 drinks daily; denies h/o seizures, withdrawal or DTs) Hx Substance Use: No substance use type: does not use Physical Exam Vital Signs Last Vital Signs Temp 97.7 F 09/01/23 12:31 Pulse 62 09/01/23 12:31 Resp 20 09/01/23 12:31 BP 175/79 H 09/01/23 12:31 Pulse Ox 95 09/01/23 12:31 O2 Del Method Room Air 09/01/23 12:31 Testing Laboratory Results 09/01/23 12:48 09/01/23 12:48 PT 10.5 Seconds (9.0-12.0) 09/01/23 12:48 INR 1.0 (0.9-1.1) 09/01/23 12:48 APTT 26 Seconds (21-31) 09/01/23 12:48 Electrocardiogram Date: 07/08/23 Sinus bradycardia, rate 51 bpm Otherwise normal ECG When compared with ECG of 12-JUN-2014 15:11, No significant change was found Confirmed by Gabriel Harvey ([id number]) on 07/08/2023 3:55:30 PM Chest X-Ray Date: 07/08/23 FINDINGS: PA and lateral chest radiographs are compared to study dated 06/11/2012. The heart is mildly enlarged noting atherosclerotic calcification of the thoracic aorta. The pulmonary vasculature is nondistended just. Chronic interstitial thickening is similar to previous. There is bibasilar scarring/atelectasis. No airspace consolidation or pleural effusion is identified. There is no pneumothorax. The skeletal structures are osteopenic. The bony thorax appears intact. Fusion hardware is seen at the cervicothoracic junction. Degenerative change is seen in the thoracic spine. IMPRESSION: Mild cardiomegaly with no active disease in the chest. Cervical Spine Date: 08/06/23 FINDINGS: Extensive postoperative changes of the cervical spine redemonstrated which includes anterior plate and screw fusion at C3-C4 with posterior interbody rods and screw fusion at extending from C3-T2. Bridging osteophytosis is noted with straightening of the normal cervical lordosis. Moderate multilevel facet arthrosis. Atherosclerosis of the carotid bulbs. No acute fracture or subluxation. No evidence of hardware complication. IMPRESSION: 1. No acute fracture or subluxation. 2. Degenerative and postoperative changes as above.
[2023-09-01] MEDS: HYDROmorphone INJ 0.5 MG/0.5 ML SYR IV STA (15:37)
[2023-09-01] MEDS ORDERED: PROMETHAZINE HCL 12.5 MG in SODIUM CHLORIDE 0.9% 50 ML IV PRN (16:06)
[2023-09-01] MEDS ORDERED: HYDROmorphone INJ 0.5 MG/0.5 ML SYR IV PRN (16:06)
[2023-09-01] MEDS ORDERED: NALOXONE HCL 0.4 MG/1 ML VIAL/CARP IV PRN (16:06)
[2023-09-01] MEDS ORDERED: ONDANSETRON 4 MG OD TAB PO PRN (16:06)
[2023-09-01] MEDS ORDERED: ACETAMINOPHEN 1,000 MG/100 ML VIAL IV PRN (16:06)
[2023-09-01] MEDS ORDERED: METOCLOPRAMIDE HCL INJ 5 MG/ML 2 ML VIAL IV PRN (16:06)
[2023-09-01] MEDS ORDERED: HYDROmorphone INJ 1 MG/ML SYRINGE IV PRN (16:06)
[2023-09-01] MEDS ORDERED: traMADol HCL 50 MG TABLET PO PRN (16:06)
[2023-09-01] MEDS ORDERED: LORazepam 0.5 MG TAB PO PRN (16:06)
[2023-09-01] MEDS ORDERED: ACETAMINOPHEN 500 MG TAB PO PRN (16:06)
[2023-09-01] MEDS ORDERED: ONDANSETRON INJ 2 MG/ML 2 ML VIAL IV PRN (16:06)
--- NOTE | 2023-09-01 17:13 | History & Physical Report ---
Date of Service September 01, 2023 Assessment & Plan Admission and Anticipated Discharge Date Admission Date: September 01, 2023 History of Present Illness Primary Care Provider: NO PCP MRI done last week with [facility], showed R sided "fluid pocket" doesn't drive, cousin drove him in, uses walker almost fell 08/28 following dinner Still have like 3 oxy'sleft, took tylenol w/out relief Allergies Allergy/AdvReac Type Severity Reaction Status Date / Time adhesive AdvReac Intermediate SKIN TEARS Verified 08/03/23 08:08 Home Medications Medication Instructions Recorded Confirmed Type metformin 500 mg tablet 1,000 mg PO QPM 06/24/23 09/01/23 History oxycodone 5 mg tablet 5 mg PO Q6H PRN pain #30 tabs 08/07/23 09/01/23 Rx tramadol 50 mg tablet 50 mg PO Q6H PRN pain, moderate 08/07/23 09/01/23 Rx #30 tabs cyclobenzaprine 10 mg tablet 10 mg PO QID 09/01/23 09/01/23 History Past Med/Surg History Problem List Low back pain (Acute) Alcohol use Obesity Tobacco use Diabetes mellitus, type II Status post lumbar surgery 08/03/23: L3-S1 decompression, fusion. Dr Melchor. [facility] Neurogenic claudication due to lumbar spinal stenosis Encounter for pre-operative examination Left knee DJD (Acute) Medical History History of anesthesia reaction reports waking up in middle of 2 surgeries History of COVID-19 (~2022) lab test, resolved Diabetes NIDDM Surgical History History of esophagogastroduodenoscopy (EGD) History of colonoscopy Hx of hand surgery x 2, bilat Hx of tonsillectomy Hx of vasectomy History of bilateral knee replacement Hx of knee surgery x 3 arthroscopic History of back surgery lumbar disectomy Hx of shoulder surgery rt Hx of neck surgery x 3 Family History Other Cancer Diabetes Dyslipidemia Hypertension Stroke Social History Smoking Status: Unknown if ever smoked Tobacco Type: Smokeless Tobacco (Dip or Chew) Second Hand Exposure: No; Do You Dip or Chew Tobacco: Yes (1/2 can/day (advised)); Hx Alcohol Use: Yes Alcohol type: beer Hx Substance Use: No Preferred Language: Polish Communication Ability: Effective Sample Selector Required: No Beliefs That Will Affect Care: None Current Living Situation: Spouse Feels Safe at Home: Yes Assistive Devices: Cane, Walker and Wheelchair Results & Data Results & Data Vital Signs (Past 12 Hours) Vital Signs Temp Pulse Resp BP Pulse Ox O2 Del Method 09/01/23 12:31 36.5 C 62 20 175/79 H 95 Room Air Code Status & VTE Plan VTE Prophylaxis Plan VTE Prophylaxis will be ordered: Yes
--- NOTE | 2023-09-01 18:01 | Consultation ---
Date of Consultation September 01, 2023 Assessment & Plan (1) Neurogenic claudication due to lumbar spinal stenosis: (2) Status post lumbar surgery: (3) Diabetes mellitus, type II: (4) Tobacco use: (5) Alcohol use: (6) Obesity: Plan Don Rollins is a 68y/o M with PMHx of neurologic claudication/low back pain due to lumbar spinal stenosis s/p lumbar surgery, tobacco use disorder, alcohol use, obesity and DM type II who presented to the ED via referral by Dr. Melchor's office for admission and lumbar spine I&D. -Patient scheduled to undergo I&D of lumbar spine tomorrow morning with Dr. Melchor. Post-op fluid collection Status post lumbar surgery Neurogenic claudication due to lumbar spinal stenosis Underwent L3-S1 decompression and fusion w/ Dr. Melchor on 08/03/23. Patient states he had an MRI performed sometime last week (? [facility]) that showed a "right-sided fluid pocket." Seen by [facility] in f/u this morning, directed to ED for admission for I&D in the morning. NPO at midnight Pain control, pre-op ABX per ortho spine Discussed case with Jaky Germain PA-C who feels fluid collection is post-op seroma. Diabetes mellitus, type II A1c: 6.9 on 07/08/23 Hold home metformin Diabetic diet encouraged Novolog sliding scale per protocol Tobacco use Chews 1 can snuff daily Denies nicotine patch/gum Alcohol use Drinks 3-4 beers daily Monitor for withdrawal Start daily folic acid and thiamine after I&D procedure tomorrow AM Obesity BMI: 35.4 Lifestyle modifications to be recommended DVT Prophylaxis SCDs d/t anticipated procedure tomorrow AM Follows with Dr. Haris Moise at [facility] for routine care. Code Status: Full Code Patient seen in collaboration with Dr. Moore. Please see addendum. I spent a total of 75 minutes coordinating, documenting, and providing care for this patient excluding time spent in the performance of separately billed services. This included personally reviewing all current laboratories and imaging studies, medical reconciliation, outpatient chart review and discussion with specialists. Supervising Physician Co-Signing Physician Notes I have seen and discussed the case with the collaborating advanced practitioner. I agree with the above H&P. I have reviewed and confirmed the patients medical history, the findings on physical examination, and the patients diagnosis and treatment plan with Mick LYNN and agree with the information documented. In short, Mr. Rollins is a 68 year old gentleman with history of lumbar spinal stenosis s/p lumbar surgery, tobacco use disorder, alcohol use, obesity and DM type II who is admitted for progressive back pain s/p decompression 08/03/2023 with concern for seroma. Medicine consulted for med comanagement. GENERAL APPEARANCE: AxOx4, generally well-appearing M, no acute distress. HEENT: NC, AT. MMM. EOMI, clear conjunctiva, oropharynx clear. NECK: Supple without lymphadenopathy. No stiffness or restricted ROM. HEART: Normal rate and regular rhythm, normal S1/S1, no m/r/g LUNGS: CTAB, moving air well. No crackles or wheezes are heard. ABDOMEN: Soft, nontender, nondistended with good bowel sounds heard. BACK: No CVAT, no obvious deformity. well healed approximated surgical incision EXTREMITIES: Without cyanosis, clubbing or edema. NEUROLOGICAL: Grossly nonfocal. Alert and oriented, moving all 4 extremities. CN not formally tested but appear grossly intact.able to stand with walker Skin: Warm and dry without any rash. : #Intractable back pain, c/f post-operative seroma I&D tomorrow, 09/01 NPO midnight DVT ppx and pain management per ortho #Hypertension potentially reactive 2/2 pain pain management as above consider addition of antihypertensive if not improved with adequate pain contorl #Alcohol use AWSS #DMTII SSI rest of plan as above I spent a total of 25 minutes coordinating, documenting, and providing care for this patient excluding time spent in the performance of separately billed services. All of the aforementioned completed outside of collaborating with the assigned advanced practitioner for a full treatment plan. I have reviewed the advanced practitioner's documentation, and I agree with, and take responsibility for the plan of care History of Present Illness Reason for Consultation: Medical Management Attending Physician: Ty Melchor, DO History of Present Illness Don Rollins is a 68y/o M with PMHx of neurologic claudication/low back pain due to lumbar spinal stenosis s/p lumbar surgery, tobacco use disorder, alcohol use, obesity and DM type II who presented to the ED via referral by Dr. Melchor's office for admission and lumbar spine I&D. History obtained from patient, and associated PCP/specialist/operative records. Patient underwent L3-S1 decompression and fusion w/ Dr. Melchor on 08/03/23. Patient states he had an MRI performed sometime last week (? [facility]) that showed a "right-sided fluid pocket," which he was told needed to be drained (unable to view). Patient states he is still experiencing b/l leg numbness and lower back pain, as well as a "burning sensation" that intermittently radiates down the medial aspect of his right leg. Currently endorses 2/10 pain while laying in bed, but endorses 10/10 (if not worse) pain with movement. Patient mentions that he has been able to ambulate with a walker at home, but mentions he tends to have right knee "spasms/jerks of pain" sometimes when walking. Patient states that he has been occasionally taking the prescribed oxycodone from his surgery and Tylenol at home with minimal relief. He denies any recent falls, chills or fevers. Patient also denies any chest pain, SOB or bowel habit changes. Patient does mention that he has been experiencing some intermittent right testicular pain since his surgery, which he describes as a "pulling sensation." Patient also notes a change in urinary flow. However, he denies any hematuria or urinary incontinence issues. No other medication changes noted since last hospital admission. Allergies Allergy/AdvReac Type Severity Reaction Status Date / Time adhesive AdvReac Intermediate SKIN TEARS Verified 09/01/23 18:01 Home Medications Medication Instructions Recorded Confirmed Type metformin 500 mg tablet 1,000 mg PO QPM 06/24/23 09/01/23 History oxycodone 5 mg tablet 5 mg PO Q6H PRN pain #30 tabs 08/07/23 09/01/23 Rx tramadol 50 mg tablet 50 mg PO Q6H PRN pain, moderate 08/07/23 09/01/23 Rx #30 tabs cyclobenzaprine 10 mg tablet 10 mg PO QID 09/01/23 09/01/23 History Patient History Medical History History of anesthesia reaction reports waking up in middle of 2 surgeries History of COVID-19 (~2022) lab test, resolved Diabetes NIDDM Surgical History History of esophagogastroduodenoscopy (EGD) History of colonoscopy Hx of hand surgery x 2, bilat Hx of tonsillectomy Hx of vasectomy History of bilateral knee replacement Hx of knee surgery x 3 arthroscopic History of back surgery lumbar disectomy Hx of shoulder surgery rt Hx of neck surgery x 3 Family History Other Cancer Diabetes Dyslipidemia Hypertension Stroke Social History Smoking Status: Unknown if ever smoked Tobacco Type: Smokeless Tobacco (Dip or Chew) Second Hand Exposure: No; Do You Dip or Chew Tobacco: Yes (1/2 can/day (advised)); Hx Alcohol Use: Yes Alcohol type: beer Hx Substance Use: No Preferred Language: Portuguese Communication Ability: Effective Automotive Paint Technician Required: No Beliefs That Will Affect Care: None Current Living Situation: Spouse Feels Safe at Home: Yes Assistive Devices: Cane, Walker and Wheelchair Review of Systems Review of Systems: At least ten systems reviewed and negative, except as noted in the HPI. Physical Exam Physical Exam: General Appearance: Hypertensive, but otherwise stable. Laying down in bed, no acute distress. Easily conversing, pleasant. Intermittently wincing in pain. Head: Normocephalic, atraumatic. Eyes: Normal inspection, PERRL, EOMI, conjunctivae normal, anicteric sclerae. ENT: External ear and nose normal. Neck: Normal visual inspection, trachea midline, no thyromegaly. Respiratory: Normal respiratory effort, lungs clear to auscultation, no wheeze, rales, rhonchi. No accessory muscle use. Cardiovascular: Regular rate, rhythm, no murmur, normal peripheral pulses, no BLE edema. Vessels: No JVD. Chest: Normal inspection of chest. Abdomen/GI: Normal bowel sounds, soft, nontender, no hepatosplenomegaly. Extremities/Musculoskeletal: No cyanosis or clubbing, upper extremity motor strength 5/5 bilaterally. Unable to actively lift right leg off of bed. Neurologic: Accommodation nl, no face palsy, no dysarthria, CN's II-XI grossly intact bilaterally. Psychiatric: A+Ox3, euthymic affect. Skin: Attempted to examine surgical site, but patient refused secondary to pain. Results & Data Vital Signs (Past 12 Hours) Vital Signs Temp Pulse Resp BP Pulse Ox O2 Del Method 09/01/23 12:31 36.5 C 62 20 175/79 H 95 Room Air Laboratory Results Short CBC 09/01/23 Range/Units 12:48 WBC 5.67 (4.8-10.8) K/ul Hgb 14.1 (14.0-18.0) g/dl Hct 41.2 L (42.0-52.0) % Plt Count 202 (130-400) K/uL BMP 09/01/23 12:48 Sodium 139 Potassium 3.7 Chloride 104 Carbon Dioxide 30 BUN 15 Creatinine 0.81 Glucose 113 H Calcium 9.6 Liver Function 09/01/23 Range/Units 12:48 Total Bilirubin 0.6 (0.2-1.0) mg/dl AST 16 (13-39) U/L ALT 16 (7-52) U/L Alkaline Phosphatase 106 H (34-104) U/L Albumin 4.0 (3.4-5.0) gm/dl Medications Administered Discontinued Medications Hydromorphone HCl (Hydromorphone Inj 0.5 Mg/0.5 Ml Syr) 0.5 mg IV NOW STA Stop: 09/01/23 15:16 Last Admin: 09/01/23 15:37 Dose: 0.5 mg Documented By: TERESO (3) Diabetes mellitus, type II Diabetes mellitus complication status: without complication Diabetes mellitus longterm insulin use: without longterm use Qualified Code(s): E11.9 - Type 2 diabetes mellitus without complications (6) Obesity Obesity classification: unspecified obesity classification Obesity type: unspecified obesity type Serious obesity comorbidity presence: unspecified whether serious comorbidity present Qualified Code(s): E66.9 - Obesity, unspecified
[2023-09-01] MEDS ORDERED: GLUCOSE 40% GEL 15 GM TUBE PO PRN (18:32)
[2023-09-01] MEDS ORDERED: CARBOHYDRATES FOR HYPOGLYCEMIA PO PRN (18:32)
[2023-09-01] MEDS ORDERED: GLUCOSE 10 TAB/TUBE PO PRN (18:32)
[2023-09-01] MEDS ORDERED: GLUCAGON FOR INJ 1 MG VIAL SQ PRN (18:32)
[2023-09-01] MEDS ORDERED: DEXTROSE 50% 50 ML SYRINGE IV PRN (18:32)
[2023-09-01] MEDS ORDERED: LORazepam 1 MG TAB PO PRN (18:40)
[2023-09-01] MEDS: SODIUM CHLORIDE 0.9% 1,000 ML IV SCH (18:43)
[2023-09-01] MEDS: CYCLOBENZAPRINE HCL 10 MG TAB PO SCH (18:43)
[2023-09-01] MEDS: INSULIN ASPART PER UNIT CHARGE SC SCH (21:15)
[2023-09-01] MEDS: oxyCODONE HCL IR 5 MG TAB (IMMEDIATE RELEASE) PO PRN (21:15)
[2023-09-02] MEDS ORDERED: ROCURONIUM BROMIDE 10 MG/ML 5 ML VIAL IV ONE ×2 (06:59→08:46)
[2023-09-02] MEDS ORDERED: LIDOCAINE 2% 2 ML VIAL/AMP(20MG/ML) INFIL ONE (06:59)
[2023-09-02] MEDS ORDERED: PROPOFOL IV EMULSION 10 MG/ML 20 ML VIAL IV ONE (06:59)
[2023-09-02] MEDS ORDERED: fentaNYL citrate PF 100 MCG/2 ML VIAL ONE (07:00)
[2023-09-02] MEDS ORDERED: ONDANSETRON INJ 2 MG/ML 2 ML VIAL ONE (07:00)
[2023-09-02] MEDS ORDERED: DexMEDEtomidine HCL IV 100 MCG/ML VIAL IV ONE (07:00)
[2023-09-02] MEDS ORDERED: SUGAMMADEX SODIUM 200 MG/2 ML VIAL IV ONE (07:00)
[2023-09-02] MEDS: LACTATED RINGER'S 1,000 ML IV SCH (07:31)
[2023-09-02] MEDS ORDERED: ePHEDrine sulfate 50 MG/ML AMP IV PRN (07:35)
[2023-09-02] MEDS ORDERED: ATROPINE SULFATE 0.1 MG/ML 10ML SYR IV PRN (07:35)
[2023-09-02] MEDS ORDERED: ONDANSETRON INJ 2 MG/ML 2 ML VIAL IV PRN ×2 (07:35→10:01)
--- NOTE | 2023-09-02 07:38 | History & Physical Report ---
Date of Service September 02, 2023 Assessment & Plan (1) Numbness and tingling of both legs: Plan: Irrigation debridement lumbar spine Admission and Anticipated Discharge Date Admission Date: September 01, 2023 History of Present Illness Chief Complaint: Back and leg pain Primary Care Provider: STACEY PCP This is a 68 male well[place] to [facility] status post [place] decompression fusion. He presents with postop seroma and continued back and leg symptoms. He is here for irrigation debridement. Allergies Allergy/AdvReac Type Severity Reaction Status Date / Time adhesive AdvReac Intermediate SKIN TEARS Verified 09/01/23 18:01 Home Medications Medication Instructions Recorded Confirmed Type metformin 500 mg tablet 1,000 mg PO QPM 06/24/23 09/01/23 History oxycodone 5 mg tablet 5 mg PO Q6H PRN pain #30 tabs 08/07/23 09/01/23 Rx tramadol 50 mg tablet 50 mg PO Q6H PRN pain, moderate 08/07/23 09/01/23 Rx #30 tabs cyclobenzaprine 10 mg tablet 10 mg PO QID 09/01/23 09/01/23 History Past Med/Surg History Problem List (Updated 09/01/23 @ 19:05 by Callie aBrton PA-C) Bilateral leg pain Numbness and tingling of both legs Low back pain (Acute) Alcohol use Obesity Tobacco use Diabetes mellitus, type II Status post lumbar surgery 08/03/23: L3-S1 decompression, fusion. Dr Melchor. [facility] Neurogenic claudication due to lumbar spinal stenosis Encounter for pre-operative examination Left knee DJD (Acute) Medical History History of anesthesia reaction reports waking up in middle of 2 surgeries History of COVID-19 (~2022) lab test, resolved Diabetes NIDDM Surgical History History of esophagogastroduodenoscopy (EGD) History of colonoscopy Hx of hand surgery x 2, bilat Hx of tonsillectomy Hx of vasectomy History of bilateral knee replacement Hx of knee surgery x 3 arthroscopic History of back surgery lumbar disectomy Hx of shoulder surgery rt Hx of neck surgery x 3 Family History Other Cancer Diabetes Dyslipidemia Hypertension Stroke Social History Smoking Status: Unknown if ever smoked Tobacco Type: Smokeless Tobacco (Dip or Chew) Second Hand Exposure: No; Do You Dip or Chew Tobacco: Yes (1/2 can/day (advised)); Hx Alcohol Use: Yes Alcohol type: beer Hx Substance Use: No Preferred Language: Maltese Communication Ability: Effective Supervisor Border Department Required: No Beliefs That Will Affect Care: None Current Living Situation: Spouse Feels Safe at Home: Yes Assistive Devices: Cane, Walker and Wheelchair Physical Exam Physical Exam: Patient is alert and oriented Heart regular in rhythm lungs clear Results & Data Results & Data Vital Signs (Past 12 Hours) Vital Signs Temp Pulse Pulse Resp BP Pulse Ox O2 Del Method 09/02/23 07:31 36.6 C 66 20 166/82 H 97 Room Air 09/01/23 22:38 36.7 C 61 18 167/78 H 97 Room Air 09/01/23 20:34 36.7 C 107 H 18 168/78 H 97 Room Air Code Status & VTE Plan VTE Prophylaxis Plan VTE Prophylaxis will be ordered: Yes
[2023-09-02] MEDS: ceFAZolin 2000MG 2,000 MG/15 ML SYR IV SCH ×2 (07:47→16:00)
[2023-09-02] MEDS: ceFAZolin 330 MG/ML 1 GM VIAL ONE (08:34)
[2023-09-02] MEDS: BUPIVACAINE/EPINEPHRINE 0.25% 1:200,000 30 ML VIAL ONE (08:34)
[2023-09-02] MEDS: VANCOMYCIN HCL 1000MG/20ML VIAL ONE (08:35)
[2023-09-02] MEDS: GENTAMICIN SULFATE 40 MG/ML 2 ML VIAL ONE (08:35)
[2023-09-02] MEDS ORDERED: HYDROmorphone INJ 2 MG/ML SYR/VIAL ONE (08:42)
--- NOTE | 2023-09-02 08:53 | Operative Report ---
Post Operative Report Pre & Post Diagnosis Operation Date: 09/02/23 07:45 Pre-Op Diagnosis: Postop seroma lumbar spine Post-Op Diagnosis: Same I identified the patient and participated in the time-out.: Yes Procedure Operation Date: 09/02/23 07:45 Actual Procedures Irrigation debridement lumbar spine with evacuation of epidural seroma. Surgeon Ty Melchor, DO Business Control Manager None Estimated Blood Loss 50 Findings Consistent with Post-Op Diagnosis Specimens Culture of epidural space Indications This is a 68-year-old male status post lumbar decompression fusion presents with continued back and leg pain. MRI imaging demonstrates massive seroma with significant compression of the thecal sac. Subsequently is here for evacuation. Description of Procedure Patient identified informed consent obtained. Patient was then taken to the operative suite underwent patient placed in a prone position ingestible top Estevan frame. All bony promises well-padded eyes inspected to ensure no external precipice monitor at this point the lumbar spine was prepped and draped no sterile fashion. Sharp dissection with assistance of Bovie cautery from down to exposing the epidural space. Massive amounts of clear serous fluid was noted. Several liters of antibiotic solution were then irrigated. 15 round MIRELA drain was then inserted. I then placed proximally 10 cc of Stimulan beads impregnated with vancomycin and gentamicin throughout the incision. It was then closed with subcutaneous Vicryl 4 Monocryl for final closure with Steri-Strips sterile dressing placed. Patient waken to the PACU stable condition. I attest to the content of the Intraoperative Record and any orders documented therein. Any exceptions are noted below.
[2023-09-02] MEDS: fentaNYL citrate PF 100 MCG/2 ML VIAL IV PRN (09:12)
--- NOTE | 2023-09-02 09:54 | Anesthesiology Progress Note ---
Date of Service September 02, 2023 Anesthesia Post Procedure Vital Signs Vital Signs: Temp Pulse Pulse Pulse Resp BP BP 09/02/23 09:40 97.3 F L 62 18 125/61 09/02/23 09:30 64 17 106/50 L 09/02/23 09:20 61 17 128/65 09/02/23 09:10 61 20 142/87 H 09/02/23 09:04 98.8 F 65 16 153/74 H 09/02/23 07:31 97.9 F 66 20 166/82 H 09/01/23 22:38 98.1 F 61 18 167/78 H 09/01/23 20:34 98.1 F 107 H 18 168/78 H 09/01/23 18:45 19 177/78 H 09/01/23 18:37 97.9 F 75 19 206/78 H 09/01/23 12:31 97.7 F 62 20 175/79 H Pulse Ox O2 Del Method O2 Flow Rate 09/02/23 09:40 96 Room Air 2 09/02/23 09:30 92 Nasal Cannula 2 09/02/23 09:20 100 Nasal Cannula 4 09/02/23 09:10 99 Nasal Cannula 4 09/02/23 09:04 100 Nasal Cannula 4 09/02/23 07:31 97 Room Air 09/01/23 22:38 97 Room Air 09/01/23 20:34 97 Room Air 09/01/23 18:45 Room Air 09/01/23 18:37 95 Room Air 09/01/23 12:31 95 Room Air Pain Intensity Back: Pain Intensity: 4 Transfer of Care Handoff Completed per policy Notes Mental Status: alert / awake / arousable and participated in evaluation Patient Amnestic to Procedure: Yes Nausea / Vomiting: adequately controlled Pain: adequately controlled Airway Patency, RR, SpO2: stable & adequate BP & HR: stable & adequate Hydration State: stable & adequate Anesthetic Complications: no major complications apparent and Pt Satisfied with anesthetic care
[2023-09-02] MEDS ORDERED: hydrOXYzine HCl 25 MG TAB PO PRN (10:01)
[2023-09-02] MEDS ORDERED: ALUMINUM/MAGNESIUM SUSP 30 ML UDC PO PRN (10:01)
[2023-09-02] MEDS ORDERED: DO NOT ADMINISTER PNEUMOCOCCAL VACCINE PRN (10:01)
[2023-09-02] MEDS ORDERED: bisacodyL 10 MG SUPP PR PRN (10:01)
[2023-09-02] MEDS ORDERED: LORazepam 0.5 MG in SYRINGE 0.25 ML IV PRN (10:01)
[2023-09-02] MEDS ORDERED: METOCLOPRAMIDE HCL INJ 5 MG/ML 2 ML VIAL IV PRN (10:01)
[2023-09-02] MEDS ORDERED: MAGNESIUM HYDROXIDE SUSP 30 ML UDC PO PRN (10:01)
[2023-09-02] MEDS ORDERED: ONDANSETRON 4 MG OD TAB PO PRN (10:01)
[2023-09-02] MEDS ORDERED: ACETAMINOPHEN 1,000 MG/100 ML VIAL IV PRN (10:01)
[2023-09-02] MEDS ORDERED: SOD PHOSPHATE/SOD BIPHOSPHATE ENEMA 132 ML BTL PR PRN (10:01)
[2023-09-02] MEDS ORDERED: LORazepam 0.5 MG TAB PO PRN (10:01)
[2023-09-02] MEDS ORDERED: DO NOT ADMINISTER FLU VACCINE PRN (10:01)
[2023-09-02] MEDS ORDERED: FAMOTIDINE 20 MG TAB PO PRN (10:01)
[2023-09-02] MEDS ORDERED: HYDROmorphone INJ 0.5 MG/0.5 ML SYR IV PRN (10:01)
[2023-09-02] MEDS ORDERED: PROMETHAZINE HCL 12.5 MG in SODIUM CHLORIDE 0.9% 50 ML IV PRN (10:01)
[2023-09-02] MEDS ORDERED: diphenhydrAMINE Capsule 25 MG CAP PO PRN (10:01)
[2023-09-02] MEDS ORDERED: NALOXONE HCL 0.4 MG/1 ML VIAL/CARP IV PRN (10:01)
[2023-09-02] MEDS: SODIUM CHLORIDE 0.9% 1,000 ML IV SCH (11:03)
[2023-09-02] MEDS: THIAMINE HCL 100 MG TAB PO SCH (11:04)
[2023-09-02] MEDS: FOLIC ACID 1 MG TAB PO SCH (11:04)
[2023-09-02] MEDS: traMADol HCL 50 MG TABLET PO PRN (11:08)
[2023-09-02] MEDS: ACETAMINOPHEN 500 MG TAB PO PRN (16:04)
--- NOTE | 2023-09-02 16:41 | Hospitalist Progress Note ---
Date of Service September 02, 2023 Assessment & Plan (1) Neurogenic claudication due to lumbar spinal stenosis: (2) Status post lumbar surgery: (3) Diabetes mellitus, type II: (4) Tobacco use: (5) Alcohol use: (6) Obesity: Plan Don Rollins is a 68y/o M with PMHx of neurologic claudication/low back pain due to lumbar spinal stenosis s/p lumbar surgery, tobacco use disorder, alcohol use, obesity and DM type II who presented to the ED via referral by Dr. Melchor's office for admission and lumbar spine I&D. Postoperative seroma lumbar spine S/P irrigation debridement lumbar spine with evacuation of epidural seroma on 09/02/23 by H/O Neurogenic claudication due to lumbar spinal stenosis S/P L3-S1 decompression and fusion w/ Dr. Melchor on 08/03/23. -Wound culture pending Empirically received cefazolin Pain control Appreciate orthopedics input Bowel regimen to prevent constipation Alcohol use disorder Monitor for withdrawal Continue thiamine, folic acid Hypertension Likely situational secondary to pain Not on any medications at home Will consider adding antihypertensives if BP persistently elevated Monitor BP Diabetes mellitus, type II A1c: 6.9 on 07/08/23 Hold home metformin Diabetic diet encouraged Continue insulin while hospitalized Monitor BGs Tobacco use Chews 1 can snuff daily Denies nicotine patch/gum Director Acute to quit use Obesity BMI: 35.4 Lifestyle modifications to be recommended DVT Prophylaxis SCDs, as per primary Code Status: Full Code Admission and Anticipated Discharge Date Admission Date: September 01, 2023 Subjective Patient is seen and examined at bedside Back pain at surgical site is controlled States having more function of right lower extremity after the procedure Denies any chest pain, dyspnea, dizziness, nausea, vomiting, abdominal pain No other complaints Review of Systems Review of Systems: All systems reviewed & are unremarkable except as noted in Subjective Physical Exam Physical Exam: Physical Exam: Vitals signs as noted above General Appearance:Moderately built and nourished, no apparent distress Head: normocephalic, Atraumatic Eyes: normal inspection, EOMI Neck: supple, Trachea midline Respiratory/Chest: Normal breath sounds, CTA, No accessory muscle use Cardiovascular: S1, S2, No murmur Abdomen/GI:Soft, Non tender, Bowel sounds present Back: +Surgical site in dressing,+ drain Extremities/Musculoskeletal:normal inspection, no edema Neurologic/Psych:AAOX3, grossly no focal neurological deficits Skin: normal color, warm Results & Data Results & Data Vital Signs (Past 12 Hours) Vital Signs Temp Pulse Pulse Resp BP BP Pulse Ox 09/02/23 13:43 36.6 C 68 17 160/70 H 93 09/02/23 13:11 36.5 C 67 16 104/63 93 09/02/23 12:00 36.9 C 77 16 141/76 H 94 09/02/23 11:06 36.5 C 63 16 144/79 H 93 09/02/23 10:36 36.5 C 64 16 144/78 H 92 09/02/23 10:01 37.2 C 66 16 126/62 94 09/02/23 09:40 36.3 C L 62 18 125/61 96 09/02/23 09:30 64 17 106/50 L 92 09/02/23 09:20 61 17 128/65 100 09/02/23 09:10 61 20 142/87 H 99 09/02/23 09:04 37.1 C 65 16 153/74 H 100 09/02/23 07:31 36.6 C 66 20 166/82 H 97 O2 Del Method O2 Flow Rate 09/02/23 13:43 Room Air 09/02/23 13:11 Room Air 09/02/23 12:00 Room Air 09/02/23 11:06 Room Air 09/02/23 10:36 Room Air 09/02/23 10:01 Room Air 09/02/23 09:40 Room Air 2 09/02/23 09:30 Nasal Cannula 2 09/02/23 09:20 Nasal Cannula 4 09/02/23 09:10 Nasal Cannula 4 09/02/23 09:04 Nasal Cannula 4 09/02/23 07:31 Room Air (3) Diabetes mellitus, type II Diabetes mellitus assistant terminal manager insulin use: without halfway use Diabetes mellitus complication status: without complication Qualified Code(s): E11.9 - Type 2 diabetes mellitus without complications (6) Obesity Obesity type: unspecified obesity type Obesity classification: unspecified obesity classification Serious obesity comorbidity presence: unspecified whether serious comorbidity present Qualified Code(s): E66.9 - Obesity, unspecified
[2023-09-02] MEDS: DOCUSATE SODIUM/SENNA 50/8.6MG TAB PO SCH (20:22)
[2023-09-02] MEDS: HYDROmorphone INJ 1 MG/ML SYRINGE IV PRN (23:26)
[2023-09-03] MEDS: POLYETHYLENE (MIRALAX) 17 GM PACK PO SCH (05:02)
[2023-09-03 06:21] LABS: Hematocrit (blood only) 36.3 % (42.0-52.0); Hemoglobin 12.2 g/dl (14.0-18.0); Mean Corpuscular Hemoglobin 31.8 pg (25.0-34.0); Mean Corpuscular Hgb Conc 33.6 g/dL (32.0-36.0); Mean Corpuscular Volume 94.5 fL (80.0-100.0); Mean Platelet Volume 8.9 fL (9.4-12.4); Platelet Count 165 K/uL (130-400); RDW Coefficient of Variation 12.7 % (11.5-14.5); RDW Standard Deviation 43.7 fL (36.4-46.3); Red Blood Count 3.84 M/uL (4.70-6.10); White Blood Count 5.72 K/ul (4.8-10.8)
[2023-09-03 06:34] LABS: BUN Creatinine Ratio 18.1 (10-20); Calcium 8.6 mg/dl (8.6-10.3); Creatinine Clr Calc Pharmacy 128.7 ml/min; Est GFR (African American) 111.9 ml/min; Est GFR (Non-African American) 96.5 ml/min; Potassium 4.1 mmol/L (3.5-5.1)
--- NOTE | 2023-09-03 11:25 | Orthopedic Progress Note ---
Date of Service September 03, 2023 Assessment & Plan (1) Bilateral leg pain: Plan: Assessment status post evacuation of lumbar seroma. Plan at this time patient is feeling very comfortable. He is ambulating well. We discussed possible discharge tomorrow. Will discharge him home with his drain. His [id number] is a nurse. Admission and Anticipated Discharge Date Admission Date: September 01, 2023 Subjective Back pain controlled leg pain markedly improved. He is requiring very little pain medication. Physical Exam Physical Exam: Patient is currently in bed. Appears comfortable. Distracted testing. Results & Data Vital Signs (Past 12 Hours) Vital Signs Temp Pulse Resp BP BP Pulse Ox O2 Del Method 09/03/23 07:33 36.7 C 63 16 144/66 H 94 Room Air 09/03/23 03:00 37.0 C 70 18 137/75 93 Room Air Queries Orthopedic Spine Obesity: Yes
--- NOTE | 2023-09-03 16:15 | Hospitalist Progress Note ---
Date of Service September 03, 2023 Assessment & Plan (1) Neurogenic claudication due to lumbar spinal stenosis: (2) Status post lumbar surgery: (3) Diabetes mellitus, type II: (4) Tobacco use: (5) Alcohol use: (6) Obesity: Plan Don Rollins is a 68y/o M with PMHx of neurologic claudication/low back pain due to lumbar spinal stenosis s/p lumbar surgery, tobacco use disorder, alcohol use, obesity and DM type II who presented to the ED via referral by Dr. Melchor's office for admission and lumbar spine I&D. Postoperative seroma lumbar spine S/P irrigation debridement lumbar spine with evacuation of epidural seroma on 09/02/23 by H/O Neurogenic claudication due to lumbar spinal stenosis S/P L3-S1 decompression and fusion w/ Dr. Melchor on 08/03/23. Empirically received cefazolin Pain control Appreciate orthopedics input Bowel regimen to prevent constipation Wound cultures negative to date Needs follow-up with orthopedics on discharge Alcohol use disorder Monitor for withdrawal Continue thiamine, folic acid Currently no signs of alcohol withdrawal Hypertension Likely situational secondary to pain Not on any medications at home Added low-dose amlodipine 2.5 mg daily Monitor BP Diabetes mellitus, type II A1c: 6.9 on 07/08/23 Hold home metformin Diabetic diet encouraged Continue insulin while hospitalized Monitor BGs Tobacco use Chews 1 can snuff daily Denies nicotine patch/gum Silver Buffer to quit use Obesity BMI: 35.4 Lifestyle modifications to be recommended DVT Prophylaxis SCDs, as per primary Code Status: Full Code Admission and Anticipated Discharge Date Admission Date: September 01, 2023 Subjective Patient is seen and examined at bedside States feeling better today No new complaints Back pain is controlled Denies any chest pain, dyspnea, dizziness, nausea, vomiting, abdominal pain Review of Systems Review of Systems: All systems reviewed & are unremarkable except as noted in Subjective Physical Exam Physical Exam: Physical Exam: Vitals signs as noted above General Appearance:Moderately built and nourished, no apparent distress Head: normocephalic, Atraumatic Eyes: normal inspection, EOMI Neck: supple, Trachea midline Respiratory/Chest: Normal breath sounds, CTA, No accessory muscle use Cardiovascular: S1, S2, No murmur Abdomen/GI:Soft, Non tender, Bowel sounds present Back: +Surgical site in dressing,+ drain Extremities/Musculoskeletal:normal inspection, no edema Neurologic/Psych:AAOX3, grossly no focal neurological deficits Skin: normal color, warm Results & Data Results & Data Vital Signs (Past 12 Hours) Vital Signs Temp Pulse Resp BP Pulse Ox O2 Del Method 09/03/23 14:33 36.9 C 69 16 149/67 H 95 Room Air 09/03/23 07:33 36.7 C 63 16 144/66 H 94 Room Air Laboratory Results Short CBC 09/03/23 Range/Units 05:52 WBC 5.72 (4.8-10.8) K/ul Hgb 12.2 L (14.0-18.0) g/dl Hct 36.3 L (42.0-52.0) % Plt Count 165 (130-400) K/uL BMP 09/03/23 05:52 Sodium 135 L Potassium 4.1 Chloride 104 Carbon Dioxide 26 BUN 13 Creatinine 0.72 Glucose 138 H Calcium 8.6 (3) Diabetes mellitus, type II Diabetes mellitus watermaster insulin use: without senior care use Diabetes mellitus complication status: without complication Qualified Code(s): E11.9 - Type 2 diabetes mellitus without complications (6) Obesity Obesity type: unspecified obesity type Obesity classification: unspecified obesity classification Serious obesity comorbidity presence: unspecified whether serious comorbidity present Qualified Code(s): E66.9 - Obesity, unspecified
[2023-09-03] MEDS: amLODIPine BESYLATE 5 MG TAB PO SCH (18:15)
[2023-09-03] MEDS: oxyCODONE HCL IR 5 MG TAB (IMMEDIATE RELEASE) PO PRN (23:23)
--- NOTE | 2023-09-04 08:59 | Discharge Summary ---
Date of Service September 04, 2023 Admission HPI Per Admitting Provider This is a 68 male well-known to me status post lumbar decompression fusion. He presents with postop seroma and continued back and leg symptoms. He is here for irrigation debridement. Principal Diagnosis Postop lumbar seroma with neurogenic claudication Discharge Data Allergies Allergy/AdvReac Type Severity Reaction Status Date / Time adhesive AdvReac Intermediate SKIN TEARS Verified 09/01/23 18:01 Consultations 09/01/23 13:56 ED Decision to Admit Stat 09/01/23 16:06 Consult Internal Medicine Routine Procedures Performed Operation Date: 09/02/23 07:45 Actual Procedures p Incision and Drainage Lumbar Spine(Not Applicable) - Ty Melchor DO Hospital Course (1) Numbness and tingling of both legs: Patient underwent I&D lumbar spine tolerated this well was taken to orthopedic for postoperative. Postop Rodriguez is ambulating well. Preoperative leg pain and numbness has resolved. Subsequently discharged home. Discharge orders instructions found in chart for further view. Total Time Total Time Spent Total Time Spent (In Minutes): 20 minutes Discharge Plan Discharge Items Patient Disposition: Home - Self-Care Reason For Visit: POSTOP SEROMA Discharge Diagnosis: Postop lumbar seroma Condition on Discharge: Good Activity: As commented below Non-emergency contact: Primary Care Provider Call non-emergency contact if: you have any medication questions Follow-up/Referrals: PCPSTACEY [Primary Care Provider] - Diet: Regular Addtl Attending Provider Instructions: ACTIVITY RECOMMENDATIONS: SELF CARE INSTRUCTIONS AFTER THORACIC/LUMBAR FUSIONS 1. You may walk to your tolerance. It is good exercise for your legs and back. Expect some back and intermittent leg aches and pains. 2. You may perform "counter-top" level activities (make a sandwich, romaine with a project, etc.). 3. No bending or lifting of more than 10 pounds or back twisting of any nature (roll like a log when turning in bed). 4. You may ride in a car for 20-30 minutes at a time. No driving until after your first visit with your doctor. 5. Frequent changes of position and restricting sitting to 30 minutes at a time will help limit the amount of back spasms and stiffness you may experience. 6. You may discontinue the use of ambulatory aids (cane, crutches, etc.) once your strength and confidence allow. 7. You may lap winding machine operator the shower and let water strike your incision when you arrive home at least once daily. Do not take a tub bath, sit in a hot tub or go into a swimming pool until after your first recheck in the office. SPECIAL CARE INSTRUCTIONS: VERY IMPORTANT TO READ AND REVIEW A. Your surgical incision has been closed with a cosmetic suture under the skin that will dissolve in about 6 weeks. In 14 days, you can use a pair of clean scissors and cut the suture that is left outside of the skin at the ends of your incision. 1. The small skin tapes can be removed 7 days after surgery if they have not fallen off by that point. 2. You may keep the wound open to air as much as possible to promote healing after post-op day number 5 unless told otherwise by your doctor. 3. If you think the wound looks like it is becoming infected (redness or worsening drainage) and/or you are experiencing fever, chill or worsening back pain and muscle spasms, contact the office so that we may evaluate you as soon as possible. B. Complications are uncommon, but please contact us if you have any signs or symptoms of: 1. wound infection (fever higher than 102.5 degrees F, redness, separation of wound, drainage, or increasing pain from the incision) 2. blood clots in legs (pain, swelling, redness and warmth in legs) 3. urinary tract infection (fever higher than 102.5 degrees F, burning upon urination or increased frequency of urination) 4. nerve problems (inability to walk on your toes or heels, numbness, loss of bowel or bladder control) 5. any other symptoms that concern you C. Please call the office at if you have any concerns or questions about your operation or recovery. D. No smoking! Smoking drastically decreases the chance of a solid fusion. E. Do not take any anti-inflammatory medications (Indocin, Advil, Motrin, Aspirin, Naprosyn, etc.) as these may inhibit the chance of a solid fusion. Tylenol is okay to take for pain. MANAGING PAIN AFTER SPINAL SURGERY 1. Narcotic medication is intended for short-term use and will be provided for surgical pain. Surgical pain usually lasts for a period of 4-6 weeks. Narcotic medication includes Percocet, Vicodin, Darvocet, Tylenol #3 or Lortab. 2. Longer-term pain is more appropriately treated with non-narcotic medication such as Tylenol ES. 3. Muscle spasm is not appropriately treated with narcotics. Muscle relaxers such as Soma, Flexeril or Skelaxin can be used along with Tylenol ES. 4. Remember that we all live with some "aches and pains". This is not unusual or uncommon after an injury or as we get older. a. Back pain is expected and may include muscle spasms for 4 to 6 weeks after surgery. The pain should gradually improve. If the pain worsens for no apparent reason, please contact the office. b. Intermittent leg pain may also be experienced and should not be concerned about unless it worsens for no apparent reason. If so, please contact the office. 5. We will provide appropriate medication within the normal guidelines of their prescribed use. We will also be very cautious and aware of potential abuse and extended duration of patients' medication needs. a. Pain medications are for your comfort and to assist with sleep and rest so that the tissue can heal. They are not provided in order to return to normal activity and should not be used through the day. To do so or worsening pain at night can result from ongoing tissue damage and development of tolerance to the prescribed medicine. 6. Please allow 2-3 days to process refills. Prescriptions will not be mailed but must be picked up at the office. FOLLOW UP VISIT: Keep your scheduled follow-up appointment. Any questions, please call the office at . Pending Studies at Discharge: No Stand-Alone Forms: [facility] [employer], Smoking Cessation Medications and DC Order Prescriptions: New tramadol 50 mg tablet 50 mg PO Q6H PRN (Reason: pain, moderate) Qty: 30 0RF Continued metformin 500 mg Tablet 1,000 mg PO QPM tramadol 50 mg tablet 50 mg PO Q6H PRN (Reason: pain, moderate) Qty: 30 0RF oxycodone 5 mg tablet 5 mg PO Q6H PRN (Reason: pain) Qty: 30 0RF cyclobenzaprine 10 mg tablet 10 mg PO QID Discharge Orders: Discharge Order (Routine); Ordered 09/04/23 Ordered By: Ty Melchor Admission Data Admit Date/Time: 09/01/23 14:25 Attending Provider: Ty Melchor Admit Provider: Ty Melchor Primary Care Provider: PCP,NO Other Providers: Ty Melchor; Janny Moore
--- NOTE | 2023-09-04 12:49 | Communication Note ---
Date of Service: September 04, 2023 Patient was not evaluated by me on day of discharge. Patient was discharged before my eval.
--- NOTE | 2023-09-07 19:26 | Coding Query ---
ANEMIA To promote full compliance with coding requirements relating to patient care, physician participation is requested in all cases of assembly leader uncertainty. Please assist us with the question(s) below: Coding Question(s): The medical record reflects the following clinical evidence: Clinical Indicators: Initial Hgb 14.1, dropping to 12.2 following drainage of seroma Treatment: monitor CBC and MIRELA drainage Risk Factor(s): expected surgical blood loss If these findings are indicative of anemia, please specify the known or suspected type by placing an "X" within the parenthesis (x). If other, please document type. Examples are: ( ) Acute blood loss anemia (x ) Acute Postoperative blood loss anemia ( ) Chronic blood loss anemia ( ) Anemia of chronic disease ( ) Anemia, unspecified or other ( ) Other: (please specify) Thank you Suzanne MONSALVE
== END 2023-09-04 12:20 | disposition home or self-care (01) | DRG 908 ==
LOC: ED 12:21 → EDINP 14:25 → 3E 17:22